=== PATIENT | female | born 1950 | race Caucasian/White ===

== ENCOUNTER 2017-12-27 08:02 | Inpatient (IN) | payer OTHER ==
[2017-12-27 08:07] VITALS: BMI 27.4
--- NOTE | 2017-12-27 08:13 | PDOC ---
History of Present Illness - General Chief Complaint: CVA/TIA Stated Complaint: weakness Time Seen by Provider: 12/27/17 08:03 History Source: Patient, Significant Other Exam Limitations: No Limitations - History of Present Illness Initial Comments: 12/27/17 08:14 This is a 67 YOF with h/o IDDM, HTN, HLD, recurrent UTI. who was BIBEMS after her called because he noticed she had a mild facial droop and leg weakness so bad she was unable to get out of bed this morning. The states that she stayed in bed after awakening and asked him to bring her blankets because she felt very cold. She additionally vomited on herself (the food she ate late last night). Last known well was 2 am today as witnessed by her just before they went to bed. They went to the casino and were drinking last night. The patient did not take any new medications and did not take any meds this morning. She notes that for the past two days she has had vaginal itching and burning on urination. She denies measured fever, n/v/d/c, hematuria, vaginal discharge, n/t, or other symptoms. Past History - Past Medical History Allergies/Adverse Reactions: Allergies Allergy/AdvReac Type Severity Reaction Status Date / Time No Known Drug Allergies Allergy Verified 12/27/17 08:02 Home Medications: Ambulatory Orders Amiloride HCl 10 mg PO ASDIR 12/27/17 Atorvastatin Calcium [Lipitor] 10 mg PO DAILY 12/27/17 Insulin Aspart Prot/Insuln Asp [Novolog Mix 70-30 Flexpen Syrn] 70 unit SQ BID 12/27/17 Insulin Aspart [Novolog] 30 unit SQ BID 12/27/17 Levothyroxine [Synthroid -] 75 mcg PO DAILY 12/27/17 Losartan Potassium 50 mg PO DAILY 12/27/17 Metoprolol Succinate 25 mg PO DAILY 12/27/17 Omeprazole 20 mg PO DAILY 12/27/17 Paroxetine HCl 20 mg PO DAILY 12/27/17 Sitagliptin Phos/Metformin HCl [Janumet 50-1,000 mg Tablet] 1 each PO DAILY Anemia: Yes Asthma: No Cancer: No Cardiac Disorders: No CVA: No COPD: No CHF: No Dementia: No Diabetes: Yes GI Disorders: Yes (GERD, PATIÑO'S ESOPHAGUS) Disorders: No HTN: Yes Hypercholesterolemia: Yes Liver Disease: No Seizures: No Thyroid Disease: Yes (HYPOTHYROIDISM) - Surgical History Abdominal Surgery: No Appendectomy: No Cardiac Surgery: No Cholecystectomy: No Lung Surgery: No Neurologic Surgery: No Orthopedic Surgery: Yes ([facility]) - Suicide/Smoking/Psychosocial Hx Smoking History: Never smoked Have you smoked in the past 12 months: No Hx Alcohol Use: No Drug/Substance Use Hx: No Substance Use Type: None Review of Systems - Review of Systems Able to Perform ROS?: Yes Constitutional: Yes: Chills. No: Unexplained wgt Loss HEENTM: No: Nose Congestion, Throat Pain Respiratory: No: Cough, Shortness of Breath Cardiac (ROS): No: Chest Pain, Palpitations ABD/GI: Yes: Nausea, Vomiting. No: Constipated, Diarrhea : Yes: Burning, Dysuria, Other (vaginal itching) Musculoskeletal: Yes: Neck Pain (right sided last night). No: Back Pain Integumentary: No: Bruising, Rash Neurological: Yes: Weakness (right facial droop, left leg). No: Headache, Numbness, Tingling, Dizziness Endocrine: No: Unexplained Weight Gain, Unexplained Weight Loss *Physical Exam - Vital Signs 12/27/17 08:30 Initial Vital Signs Temp Pulse Resp BP Pulse Ox 99.5 F 109 H 20 146/88 97 12/27/17 08:03 12/27/17 08:03 12/27/17 08:03 12/27/17 08:03 12/27/17 08:03 GENERAL: pleasant older adult female accompanied by , emesis on chest wall and legs, A/Ox4, no acute distress, speaking in full sentences with slightly slurred speech, answers simple questions appropriately but at time does not make sense (e.g. states that the warm fan caused her neck pain) HEENT: PERRLA, cataract replacements noted, EOMI, moist mucous membranes, no posterior pharyngeal erythema, no tonsillar swelling or exudates, no cervical lymphadenopathy NECK: No midline ttp, no lateral ttp, no spinal stepoff or deformity, full ROM, supple CARDIOVASCULAR: Regular rate and rhythm, normal S1S2, MGR, radial and DP pulses 2+ and symmetric, capillary refill <2 seconds, extremities warm and well- perfused Chest wall: Normal appearance, no rash, no bruising, no costal stepoff or deformity, nontender to compression LUNGS/RESPIRATORY: No respiratory distress, normal and symmetric chest movements during respirations, lungs CTA bilaterally, equal breath sounds, no cyanosis, no nail clubbing GI/ABDOMEN: Normal symmetric appearance, normoactive bowel sounds, soft, no tenderness to palpation, no midline pulsatile masses, no palpated organomegaly : No CVA tenderness, normal external appearance, no lesions BACK: No midline ttp or stepoff or deformity of thoracic or lumbar spine EXTREMITIES: distal pulses 2+, warm and well-perfused, no LE edema SKIN: Warm and dry, no pallor, no jaundice, no bruising, no rash, no skin breakdown, no cuts, no lesions NEUROLOGICAL: GCS 15, NIHSS is 3 initially, CN II-XII grossly intact, moving all extremities, 5/5 strength proximally and distally except for LLE which is 4/ 5 proximally and distally, mild right facial droop, no decreased sensation NIH Stroke Scale - Last Known Well Date/Time & Onset Date Last Known Well: 12/27/17 Time Last Known Well: 02:00 - Initial Evaluation Level of consciousness: Alert Ask patient the month and their age: Answers both correctly Ask patient to open & close eyes; make fist and let go: Obeys both correctly Best gaze (horizontal eye movement): Normal Visual field testing: No visual field loss Facial paresis (Show teeth/raise eyebrows/close eyes tight): Minor paralysis ( flattened nasolabial fold, asymmetry on smiling) Motor Function: Left Arm: Normal Motor Function: Right Arm: Normal (extends arm 90 (or 45) degrees for 10 seconds without drift Motor Function: Left Leg: Drift Motor Function: Right Leg: Normal (extends leg 30 degrees for 5 seconds without drift) Limb Ataxia: No ataxia Sensory(Use pinprick test arms,legs,trunk,face/side to side): Normal Best language (Describe picture, name items, read sentences): No Aphasia Dysarthria (read several words): Mild to moderate slurring of words Extinction and Inattention: No abnormality - Total Score NIH Stroke Scale Score: 3 tPA Exclusion checklist 3-4.5h - Time Elapsed Date last known well: 12/27/17 Time last known well: 02:00 Elaspsed time: 1 Day(s) and 11 Hour(s) and 48 Minutes - Thrombolytic Therapy Candidate Is patient eligible for thrombolytic therapy: No - Exclusion Criteria 3-4.5 hr SBP greater than 185 or DBP greater than 110mmHg despite tx: No Recent IC/spinal surgery,head trauma or stroke<3mos.: No Hx IC hemorrhage, IC neoplasm, AV malformation or aneurysm: No Active internal bleeding: No Blding diathesis(low plt ct, inc PTT,INR>1.7 or use of NOAC): No Symptoms suggest subarachnoid hemorrhage: No Arterial puncture at noncompressible site in previous 7 days: No Blood glucose concentration less than 50mg/dL (2.7mmol/L): No - Relative Exclusion Criteria 3-4.5 hr Life expectancy <1 yr or severe co-morbid illness: No : No Patient/family refused: No Rapid improvement: Yes Stroke severity too mild: Yes Recent acute UT (w/in previous 3 months): No Seizure at onset with postictal residual neuro impairments: No Major surgery or serious trauma w/in previous 14 days: No Recent GI or hemorrhage (w/in previous 21 days): No - Add'l Relative Exclusion 3-4.5 hr Age > 80: No Hx of both diabetes AND prior ischemic stroke: No Taking an oral anticoagulant regardless of INR: No NIHSS >25: No - Ineligibility reason(s) Reasons No tPA given: Outside of window - delayed arrival Heart Score/ECG Review #1 Sinus tach, rate 102, leftward axis deviation, normal QTc, LAFB, no ischemic ST- T changes Critical Care Time/MDM Note - Medical Decision Making Note: 12/27/17 08:33 Adult patient p/w acute neurologic deficit (right facial droop, slurred speech, LLE weakness). Last known well time was 2 am at the time she went to bed. The time of onset was sometime between 2am and 7am and they are outside the tPA window. Code Porter is called. Initial Vital Signs Temp Pulse Resp BP Pulse Ox 99.5 F 109 H 20 146/88 97 12/27/17 08:03 12/27/17 08:03 12/27/17 08:03 12/27/17 08:03 12/27/17 08:03 Rectal temp: 102.2 Exam: As noted in Physical Exam section. DDX IBNLT: Sepsis, UTI or other infection, CVA/TIA, cervical dissection, EtOH intoxication, medication effect, Wernicke encephalopathy, hypoglycemia, limb ischemia (e.g. thromboembolism or dissection), subclavian steal, spinal cord compression, cauda equina syndrome W/U ordered: Labs as noted below, Head CT, EKG, CXR TX ordered: IV, O2, Monitor, IVF, Zofran, Tylenol, Head CT: Moderate diffuse atrophy but nothing acute NIH is 3 initially and patient is NOT a tPA candidate. EKG: Reviewed; results as noted in ECG Review section. CXR: Nothing acute Laboratory Tests 12/27/17 12/27/17 12/27/17 08:47 08:47 08:47 WBC 19.3 H RBC 5.05 Hgb 11.4 Hct 36.3 MCV 71.8 L MCH 22.5 L MCHC 31.3 L RDW 16.5 H Plt Count 303 D MPV 7.7 Absolute Neuts (auto) 17.8 H Neutrophils % 92.4 H Lymphocytes % 4.1 L Monocytes % 2.7 L Eosinophils % 0.1 Basophils % 0.7 Nucleated RBC % 0 PT with INR 11.70 INR 1.04 PTT (Actin FS) 22.2 L Sodium 136 Potassium 3.0 L Chloride 97 L Carbon Dioxide 25 Anion Gap 14 BUN 14 Creatinine 0.8 Creat Clearance w eGFR > 60 Random Glucose 204 H Lactic Acid Calcium 9.8 Total Bilirubin 0.7 AST 13 L ALT 21 Alkaline Phosphatase 107 Creatine Kinase 71 Troponin I < 0.02 Total Protein 7.4 Albumin 3.6 Triglycerides 114 Cholesterol 169 Total LDL Cholesterol 92 HDL Cholesterol 60 Urine Color Urine Appearance Urine pH Ur Specific Berne Urine Protein Urine Glucose (UA) Urine Ketones Urine Blood Urine Nitrite Urine Bilirubin Urine Urobilinogen Ur Leukocyte Esterase Urine WBC (Auto) Urine RBC (Auto) Urine Bacteria Urine Mucus Opiates Screen Methadone Screen Barbiturate Screen Phencyclidine Screen Ur Amphetamines Screen MDMA (Ecstasy) Screen Benzodiazepines Screen Cocaine Screen U Marijuana (THC) Screen Alcohol, Quantitative Blood Type Antibody Screen 12/27/17 12/27/17 12/27/17 08:47 08:55 08:56 WBC RBC Hgb Hct MCV MCH MCHC RDW Plt Count MPV Absolute Neuts (auto) Neutrophils % Lymphocytes % Monocytes % Eosinophils % Basophils % Nucleated RBC % PT with INR INR PTT (Actin FS) Sodium Potassium Chloride Carbon Dioxide Anion Gap BUN Creatinine Creat Clearance w eGFR Random Glucose Lactic Acid 3.1 H* Calcium Total Bilirubin AST ALT Alkaline Phosphatase Creatine Kinase Troponin I Total Protein Albumin Triglycerides Cholesterol Total LDL Cholesterol HDL Cholesterol Urine Color Ltyellow Urine Appearance Slcloudy Urine pH 7.0 Ur Specific Berne 1.014 Urine Protein 2+ H Urine Glucose (UA) 2+ H Urine Ketones Negative Urine Blood 2+ H Urine Nitrite Positive Urine Bilirubin Negative Urine Urobilinogen Negative Ur Leukocyte Esterase 2+ H Urine WBC (Auto) 180 Urine RBC (Auto) 34 Urine Bacteria Few Urine Mucus Rare Opiates Screen Methadone Screen Barbiturate Screen Phencyclidine Screen Ur Amphetamines Screen MDMA (Ecstasy) Screen Benzodiazepines Screen Cocaine Screen U Marijuana (THC) Screen Alcohol, Quantitative Blood Type O POSITIVE Antibody Screen Negative 12/27/17 12/27/17 08:56 08:56 WBC RBC Hgb Hct MCV MCH MCHC RDW Plt Count MPV Absolute Neuts (auto) Neutrophils % Lymphocytes % Monocytes % Eosinophils % Basophils % Nucleated RBC % PT with INR INR PTT (Actin FS) Sodium Potassium Chloride Carbon Dioxide Anion Gap BUN Creatinine Creat Clearance w eGFR Random Glucose Lactic Acid Calcium Total Bilirubin AST ALT Alkaline Phosphatase Creatine Kinase Troponin I Total Protein Albumin Triglycerides Cholesterol Total LDL Cholesterol HDL Cholesterol Urine Color Urine Appearance Urine pH Ur Specific Berne Urine Protein Urine Glucose (UA) Urine Ketones Urine Blood Urine Nitrite Urine Bilirubin Urine Urobilinogen Ur Leukocyte Esterase Urine WBC (Auto) Urine RBC (Auto) Urine Bacteria Urine Mucus Opiates Screen Negative Methadone Screen Negative Barbiturate Screen Negative Phencyclidine Screen Negative Ur Amphetamines Screen Negative MDMA (Ecstasy) Screen Negative Benzodiazepines Screen Negative Cocaine Screen Negative U Marijuana (THC) Screen Negative Alcohol, Quantitative < 3.0 Blood Type Antibody Screen Patient has UTI; ordered is Ceftriaxone. Patient has hypokalemia as noted; ordered is PO potassium. 12/27/17 18:30 Reassessment: Much improved, no longer facial asymmetry or slurred speech, 4/5 strength LLE, NIHSS is 1. Vital Signs Temperature 102.2 F H 12/27/17 08:50 Pulse Rate 91 H 12/27/17 11:20 Respiratory Rate 16 12/27/17 11:20 Blood Pressure 112/62 12/27/17 11:20 O2 Sat by Pulse Oximetry (%) 100 12/27/17 11:20 The Pt is unsafe for discharge at this time. They require further hospital observation, workup, and treatment. I spoke with Hiro Fu who is admitting for patient's PCP at this time. Decision to admit order placed for IP Telemetry. 12/27/17 11:53 I spoke with Neurology workers compensation attorney Dr. Rodriguez who is on his way to see the patient in the ED. He recommends 81 mg ASA and order is placed for this. Discharge Disposition - Diagnosis Weakness UTI (urinary tract infection) Qualifiers: Urinary tract infection type: acute cystitis Hematuria presence: without hematuria Qualified Code(s): N30.00 - Acute cystitis without hematuria Sepsis Qualifiers: Sepsis type: sepsis due to unspecified organism Qualified Code(s): A41.9 - Sepsis, unspecified organism - Discharge Dispostion Condition at time of disposition: Guarded Decision to Admit order: Yes - Referrals - Patient Instructions - Post Discharge Activity
[2017-12-27] MEDS ORDERED: ONDANSETRON 4 MG/2 ML VIAL ONE ×3 (08:21→17:55)
[2017-12-27] MEDS ORDERED: ONDANSETRON 4 MG/2 ML VIAL IVPUSH ONE ×2 (08:30→08:32)
--- NOTE | 2017-12-27 08:31 | PDOC ---
Attending Attestation - Resident Resident Name: Leonor Hernandez - ED Attending Attestation I have performed the following: I have examined & evaluated the patient, The case was reviewed & discussed with the resident, I agree w/resident's findings & plan, Exceptions are as noted - HPI HPI: 12/27/17 08:29 67-year-old female history of hypertension hyperlipidemia diabetes and recurring UTIs here today complaining of slurred speech neck pain and weakness. Story is provided by the patient's states they were out last night at dinner and casino he went to bed around 2 AM she went to bed slightly after when they went to bed he noted no deficits however the patient awoke at 4 AM complained of feeling chilled or cold was asking for more blankets and then this a.m. on awakening he describes that she had wasnt answer his questions when he tried to talk to her. EMS noted a right facial droop and had bilateral leg weakness and slurred speech. . No known history of previous strokes no history of CAD no seizure-like activity the called EMS in route to the hospital patient did have 1 episode of emesis. Denies chest pain or shortness of breath no recent fevers or chills no trauma does report he to H on the night prior pt does report recent dysuria, no f/c no cp no sob. 12/27/17 08:38 - Physicial Exam PE: 12/27/17 08:27 18 08:29 12/27/17 08:29 Awake alert no acute distress lung exam is normal with equal breath sounds bilaterally. Heart is regular without any murmurs rubs or gallops abdomen is soft nontender no pulsatile masses extremities are warm and well-perfused 2+ symmetric DP PT pulses neurological exam patient's speech is noted for very mild slurring only noted by family visual sherman are intact cranial nerves appear to be intact she has 5 out of 5 strength in upper bilateral testing. Lower extremities reveals mild left lower extremity weakness which is 4 out of 5 right lower extremity is 5 out of 5 sensation is intact patient is disoriented to the year - Medical Decision Making 12/27/17 08:30 Differential diagnosis includes carotid dissection or vertebral dissection CVA ICH infection exacerbating old CVA symptoms such as UTI or pneumonia hyperglycemia or DKA results of recent EtOH and tox plan CT head CTA of the neck chest x-ray EKG CBC CMP EtOH level troponin and will call code stroke patient was last normal proxy 6 hours prior to arrival Heart Score/ECG Review #1 General ECG Interpretation: Sinus Rhythm, Normal Rate (82), Normal Intervals, No acute ischemic changes
[2017-12-27] MEDS ORDERED: ACETAMINOPHEN 1000 MG/100 ML VIAL (NON FORMULARY) IVPB ONE (08:54)
[2017-12-27] MEDS ORDERED: CEFTRIAXONE 1,000 MG in DEXTROSE 5%-WATER - 50 ML IVPB ONE (08:54)
[2017-12-27] MEDS ORDERED: SODIUM CHLORIDE 0.9% 500 ML INFUS.BAG IV ONE (08:55)
[2017-12-27 08:56] LABS: BASO % 0.7 % (0-2.0); EOS % 0.1 % (0-4.5); HEMATOCRIT 36.3 % (32.4-45.2); HEMOGLOBIN 11.4 GM/dL (10.7-15.3); LYMPH % 4.1 % (8-40); MCH 22.5 pg (25.7-33.7); MCHC 31.3 g/dl (32.0-36.0); MEAN CELL VOLUME 71.8 fl (80-96); MEAN PLT VOLUME 7.7 fl (7.5-11.1); MONO % 2.7 % (3.8-10.2); NEUT % 92.4 % (42.8-82.8); PLATELET COUNT 303 K/MM3 (134-434); RBC 5.05 M/mm3 (3.60-5.2); RDW 16.5 % (11.6-15.6); WHITE BLOOD COUNT 19.3 K/mm3 (4.0-10.0)
[2017-12-27] MEDS ORDERED: CEFTRIAXONE 1 GM/50 ML BAG ONE (09:13)
[2017-12-27] MEDS ORDERED: ACETAMINOPHEN INJECTION 100 ML IVPB ONE (09:13)
[2017-12-27 09:20] LABS: ALBUMIN 3.6 g/dl (3.4-5.0); ALK PHOS 107 U/L (45-117); ANION GAP 14 MMOL/L (8-16); BILIRUBIN,TOTAL 0.7 mg/dL (0.2-1); BLOOD UREA NITROGEN 14 mg/dL (7-18); CALCIUM 9.8 mg/dL (8.5-10.1); CHLORIDE 97 mmol/L (98-107); CHOLESTEROL 169 mg/dL (50-200); CO2 25 mmol/L (21-32); CREATININE 0.8 mg/dL (0.55-1.3); GLUCOSE,RANDOM 204 mg/dL (74-106); HDL CHOLESTEROL 60 mg/dL (40-60); SGOT/AST 13 U/L (15-37); SGPT/ALT 21 U/L (13-61); SODIUM 136 mmol/L (136-145); TOT PROT 7.4 g/dl (6.4-8.2); TRIGLYCERIDES 114 mg/dL (0-150)
[2017-12-27] MEDS ORDERED: POTASSIUM CHLORIDE TABS 20 MEQ TABLET.ER (FP) PO ONE ×2 (09:20→10:15)
[2017-12-27 09:25] LABS: INR 1.04 (0.83-1.09); PROTHROMBIN TIME (PATIENT) 11.7 SEC (9.7-13.0)
[2017-12-27 09:28] LABS: ACTIVATED PTT 22.2 SECONDS (25.2-36.5)
[2017-12-27 09:48] LABS: URINE APPEARANCE SLCLOUDY; URINE BILIRUBIN NEGATIVE (<2.0 mg/dL); URINE COLOR LTYELLOW; URINE GLUCOSE (UA) 2+ (NEGATIVE); URINE KETONE NEGATIVE (NEGATIVE); URINE NITRITE POSITIVE (NEGATIVE); URINE UROBILINOGEN NEGATIVE mg/dL (0.2-1.0)
[2017-12-27 09:51] LABS: URINE LEUK ESTERASE 2+ (NEGATIVE); URINE PROTEIN 2+ (NEGATIVE)
[2017-12-27 09:52] LABS: URINE BACTERIA FEW /hpf (NONE SEEN); URINE MUCUS RARE
[2017-12-27 10:29] LABS: COCAINE, UR NEGATIVE ng/ml (CUTOFF=300); METHADONE, UR NEGATIVE ng/ml (CUTOFF=300); OPIATES, URI NEGATIVE ng/ml (CUTOFF=300); PHENCYCLIDINE,URINE NEGATIVE ng/ml (CUTOFF=25); URINE AMPHETAMINES NEGATIVE ng/ml (CUTOFF=500); URINE BARBITURATES NEGATIVE ng/ml (CUTOFF=200); URINE BENZODIAZEPINES NEGATIVE ng/ml (CUTOFF=200)
[2017-12-27] MEDS ORDERED: ACETAMINOPHEN 325 MG TABLET (FP) NR ONE (10:47)
[2017-12-27] MEDS ORDERED: SODIUM CHLORIDE 1,000 ML IV STA (10:48)
[2017-12-27] MEDS ORDERED: ONDANSETRON 4 MG/2 ML VIAL IVPUSH PRN (10:50)
[2017-12-27] MEDS: SODIUM CHLORIDE 1,000 ML IV SCH (10:52)
[2017-12-27 11:19] LABS: VENOUS PC02 40.7 mmHg (38-52); VENOUS PH 7.42 (7.32-7.42); VENOUS PO2 51.8 mmHg (28-48)
[2017-12-27] MEDS: HYDROCHLOROTHIAZIDE PO SCH ×2 (11:26→22:48)
[2017-12-27] MEDS: AMILORIDE HCL PO SCH ×2 (11:26→22:48)
[2017-12-27] MEDS ORDERED: INSULIN (NOVOLOG) ASPART 100 UNITS/ML 10ML VIAL ONE ×2 (11:45→17:56)
[2017-12-27] MEDS: INSULIN SLIDING SCALE (NOVOLOG) 1 VIAL SQ SCH ×2 (11:48→17:54)
[2017-12-27] MEDS ORDERED: ASPIRIN 81 MG CHEWABLE TABLETS PO ONE (11:52)
[2017-12-27 12:24] LABS: ANISOCYTOSIS 1+; PLATELET ESTIMATE ADEQUATE
[2017-12-27] MEDS ORDERED: ASPIRIN 81 MG CHEWABLE TABLETS ONE (12:55)
--- NOTE | 2017-12-27 13:23 | HP ---
Admitting History and Physical - Primary Care Physician PCP: Denita Granado - Admission Chief Complaint: Weakness with fever and chills History of Present Illness: 67-year-old female history of hypertension hyperlipidemia T2DM and recurring UTIs , present with chills and slurred speech with neck pain and weakness. As per patient and , patient's states they were out last night at dinner and casino he went to bed around 2 AM , patient awoke at 4 AM complained of feeling chilled or cold was asking for more blankets and then this a.m. on awakening he describes that she had wasn't answer his questions when he tried to talk to her. EMS noted a right facial droop and had bilateral leg weakness and slurred speech. . No known history of previous strokes no history of CAD no seizure-like activity the called EMS in route to the hospital patient did have 1 episode of emesis. Denies chest pain or shortness of breath , c/o Rt flank and suprapubic pain, at the time of examination aoX3 non focal. 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 Cardiovascular: Yes: HTN, Hyperlipdemia Psych: No: Addictions, Anxiety, Bipolar Musculoskeletal: Yes: Chronic low back pain Endocrine: Yes: Diabetes Mellitus - Smoking History Smoking history: Never smoked Have you smoked in the past 12 months: No - Alcohol/Substance Use Hx Alcohol Use: No - Social History Usual Living Arrangement: Yes: With Spouse ADL: Independent History of Recent Travel: No Home Medications - Allergies Allergies/Adverse Reactions: Allergies Allergy/AdvReac Type Severity Reaction Status Date / Time No Known Drug Allergies Allergy Verified 12/27/17 08:02 - Home Medications Home Medications: Ambulatory Orders Amiloride HCl 10 mg PO ASDIR 12/27/17 Atorvastatin Calcium [Lipitor] 10 mg PO DAILY 12/27/17 Insulin Aspart Prot/Insuln Asp [Novolog Mix 70-30 Flexpen Syrn] 70 unit SQ BID 12/27/17 Insulin Aspart [Novolog] 30 unit SQ BID 12/27/17 Levothyroxine [Synthroid -] 75 mcg PO DAILY 12/27/17 Losartan Potassium 50 mg PO DAILY 12/27/17 Metoprolol Succinate 25 mg PO DAILY 12/27/17 Omeprazole 20 mg PO DAILY 12/27/17 Paroxetine HCl 20 mg PO DAILY 12/27/17 Sitagliptin Phos/Metformin HCl [Janumet 50-1,000 mg Tablet] 1 each PO DAILY Family Disease History - Family Disease History Family History: Unremarkable Review of Systems - Review of Systems Constitutional: reports: Chills, Fever, Lethargy. denies: Diaphoresis Eyes: denies: Blind Spots, Blurred Vision HENT: denies: Ear Discharge, Ear Pain, Epistaxis Neck: denies: Decreased ROM, Lumps, Pain on Movement, Stiffness Cardiovascular: denies: Chest Pain, Edema, Palpitations, Shortness of Breath Respiratory: denies: Cough, Exercise Intolerance, Hemoptysis, Orthopnea Gastrointestinal: reports: Nausea, Vomiting. denies: Abdominal Pain, Bloating, Constipation, Diarrhea Genitourinary: reports: Dysuria, Flank Pain (Left) Musculoskeletal: reports: Back Pain Endocrine: denies: Excessive Sweating, Flushing Psychiatric: denies: Altered Sleep Pattern Physical Examination Vital Signs: Vital Signs Temperature 102.2 F H 12/27/17 08:50 Pulse Rate 91 H 12/27/17 11:20 Respiratory Rate 16 12/27/17 11:20 Blood Pressure 112/62 12/27/17 11:20 O2 Sat by Pulse Oximetry (%) 100 12/27/17 11:20 Constitutional: Elderly Well Nourished, No Distress HEENT: Mm dry, no anemia, PERRLA EOMI NECK: No JVd No bruit, no thyromegally , supple. Respiratory: Regular, CTA Bilaterally. No: Stridor, Tachypnea Cardiovascular: Regular Rate and Rhythm, SM in AA Gastrointestinal: Normal Bowel Sounds, Soft. No: Distention, Suprapubic, Tenderness EXTERMITIES: No edema feet, Pulses +, No Claf tenderness, CVA Tenderness + Neurological: Alert, non focal neuro exam Labs: CBC, BMP 12/27/17 08:47 12/27/17 08:47 CBC,CMP WBC 19.3 K/mm3 (4.0-10.0) H 12/27/17 08:47 RBC 5.05 M/mm3 (3.60-5.2) 12/27/17 08:47 Hgb 11.4 GM/dL (10.7-15.3) 12/27/17 08:47 Hct 36.3 % (32.4-45.2) 12/27/17 08:47 MCV 71.8 fl (80-96) L 12/27/17 08:47 MCH 22.5 pg (25.7-33.7) L 12/27/17 08:47 MCHC 31.3 g/dl (32.0-36.0) L 12/27/17 08:47 RDW 16.5 % (11.6-15.6) H 12/27/17 08:47 Plt Count 303 K/MM3 (134-434) D 12/27/17 08:47 MPV 7.7 fl (7.5-11.1) 12/27/17 08:47 Absolute Neuts (auto) 17.8 K/mm3 (1.5-8.0) H 12/27/17 08:47 Total Counted 100 12/27/17 08:47 Neutrophils % 92.4 % (42.8-82.8) H 12/27/17 08:47 Neutrophils % (Manual) 86.0 % (42.8-82.8) H 12/27/17 08:47 Band Neutrophils % 5.0 % 12/27/17 08:47 Lymphocytes % 4.1 % (8-40) L 12/27/17 08:47 Lymphocytes % (Manual) 6.0 % (8-40) L 12/27/17 08:47 Monocytes % 2.7 % (3.8-10.2) L 12/27/17 08:47 Monocytes % (Manual) 3 % (3.8-10.2) L 12/27/17 08:47 Eosinophils % 0.1 % (0-4.5) 12/27/17 08:47 Basophils % 0.7 % (0-2.0) 12/27/17 08:47 Nucleated RBC % 0 % (0-0) 12/27/17 08:47 Hypochromia 1+ 12/27/17 08:47 Platelet Estimate Adequate 12/27/17 08:47 Platelet Comment No clumping noted 12/27/17 08:47 Polychromasia 1+ 12/27/17 08:47 Anisocytosis 1+ 12/27/17 08:47 Microcytosis 1+ 12/27/17 08:47 Sodium 136 mmol/L (136-145) 12/27/17 08:47 Potassium 3.0 mmol/L (3.5-5.1) L 12/27/17 08:47 Chloride 97 mmol/L (98-107) L 12/27/17 08:47 Carbon Dioxide 25 mmol/L (21-32) 12/27/17 08:47 Anion Gap 14 MMOL/L (8-16) 12/27/17 08:47 BUN 14 mg/dL (7-18) 12/27/17 08:47 Creatinine 0.8 mg/dL (0.55-1.3) 12/27/17 08:47 Creat Clearance w eGFR > 60 (>60) 12/27/17 08:47 Random Glucose 204 mg/dL (74-106) H 12/27/17 08:47 Lactic Acid 2.2 mmol/L (0.4-2.0) H* 12/27/17 11:05 Calcium 9.8 mg/dL (8.5-10.1) 12/27/17 08:47 Total Bilirubin 0.7 mg/dL (0.2-1) 12/27/17 08:47 AST 13 U/L (15-37) L 12/27/17 08:47 ALT 21 U/L (13-61) 12/27/17 08:47 Alkaline Phosphatase 107 U/L (45-117) 12/27/17 08:47 Creatine Kinase 71 IU/L (26-192) 12/27/17 08:47 Troponin I < 0.02 ng/ml (0.00-0.05) 12/27/17 08:47 Total Protein 7.4 g/dl (6.4-8.2) 12/27/17 08:47 Albumin 3.6 g/dl (3.4-5.0) 12/27/17 08:47 Triglycerides 114 mg/dL (0-150) 12/27/17 08:47 Cholesterol 169 mg/dL (50-200) 12/27/17 08:47 Total LDL Cholesterol 92 mg/dL (5-100) 12/27/17 08:47 HDL Cholesterol 60 mg/dL (40-60) 12/27/17 08:47 Imaging - Results Chest X-ray: Pending (Normal) EKG: Report Reviewed (Sinus Rhythm, Normal Rate (82), Normal Intervals, No acute ischemic changes) Problem List - Problems (1) Sepsis Assessment/Plan: Due to UTI, fever, Chills, + UA, elevated TWBC and Lactic acid IV Hydration F/u Lactic acid , UA and blood culture will start IV Ceftriaxone. Code(s): A41.9 - SEPSIS, UNSPECIFIED ORGANISM Qualifiers: Sepsis type: sepsis due to unspecified organism Qualified Code(s): A41.9 - Sepsis, unspecified organism (2) UTI (urinary tract infection) Assessment/Plan: fever, Chills, + UA, elevated TWBC and Lactic acid IV Hydration F/u Lactic acid , UA and blood culture will start IV Ceftriaxone.F/U Ultrasound abd Code(s): N39.0 - URINARY TRACT INFECTION, SITE NOT SPECIFIED Qualifiers: Urinary tract infection type: acute cystitis Hematuria presence: without hematuria Qualified Code(s): N30.00 - Acute cystitis without hematuria (3) Altered mental state Assessment/Plan: toxic metabolic encephalopthy, Ct haed -ve now AOX3 most likely toxic metabolic encephalopathy due to UTI Code(s): R41.82 - ALTERED MENTAL STATUS, UNSPECIFIED (4) HTN (hypertension) Assessment/Plan: Resume all home meds Code(s): I10 - ESSENTIAL (PRIMARY) HYPERTENSION (5) T2DM (type 2 diabetes mellitus) Assessment/Plan: uncontrolled will satrt Levimir 24 with correction dose insulin Code(s): E11.9 - TYPE 2 DIABETES MELLITUS WITHOUT COMPLICATIONS (6) Dyslipidemia Assessment/Plan: on statin Code(s): E78.5 - HYPERLIPIDEMIA, UNSPECIFIED
--- NOTE | 2017-12-27 17:00 | EKG ---
Test Reason : Blood Pressure : / mmHG Vent. Rate : 102 BPM Atrial Rate : 102 BPM P-R Int : 184 ms QRS Dur : 102 ms QT Int : 348 ms P-R-T Axes : 053 -52 046 degrees QTc Int : 453 ms SINUS TACHYCARDIA LEFT ANTERIOR FASCICULAR BLOCK CANNOT RULE OUT ANTERIOR INFARCT , AGE UNDETERMINED ABNORMAL ECG WHEN COMPARED WITH ECG OF 11-MAY-2003 14:29, LEFT ANTERIOR FASCICULAR BLOCK IS NOW PRESENT MINIMAL CRITERIA FOR ANTERIOR INFARCT ARE NOW PRESENT Confirmed by MD Jefferson, Colby ([id number]) on 12/27/2017 4:59:47 PM Referred By: Confirmed By:Colby Paulino MD
--- NOTE | 2017-12-27 20:18 | CON.NEURO ---
Consult Consult Specialty:: Jennifer neurology Reason for Consultation:: slurred speech - History of Present Illness History of Present Illness: 67-year-old right-handed female patient with present medical history significant for: coronary artery disease, hypertension, hyperlipidemia, insulin dependent diabetes presented to the hospital with weakness and slurred speech. Patient went presented to the hospital she was outside the window for any anticoagulation or thrombo-lysis. Patient was seen in the emergency room by neurology at the request of the emergency room physician as part of the stroke protocol. in the emergency room patient was in the holding area complains of no headache or blurry vision or double vision patient was a poor historian most of the history was taken from the and the admission notes I reviewed the patient's CAT scan of the head which revealed no evidence of acute pathology patient was given aspirin. - History Source History Provided By: Patient, Medical Record Limitations to Obtaining History: Clinical Condition - Alcohol/Substance Use Hx Alcohol Use: No - Smoking History Smoking history: Never smoked Have you smoked in the past 12 months: No Home Medications - Allergies Allergies/Adverse Reactions: Allergies Allergy/AdvReac Type Severity Reaction Status Date / Time No Known Drug Allergies Allergy Verified 12/27/17 08:02 - Home Medications Home Medications: Ambulatory Orders Amiloride HCl 10 mg PO ASDIR 12/27/17 Atorvastatin Calcium [Lipitor] 10 mg PO DAILY 12/27/17 Insulin Aspart Prot/Insuln Asp [Novolog Mix 70-30 Flexpen Syrn] 70 unit SQ BID 12/27/17 Insulin Aspart [Novolog] 30 unit SQ BID 12/27/17 Levothyroxine [Synthroid -] 75 mcg PO DAILY 12/27/17 Losartan Potassium 50 mg PO DAILY 12/27/17 Metoprolol Succinate 25 mg PO DAILY 12/27/17 Omeprazole 20 mg PO DAILY 12/27/17 Paroxetine HCl 20 mg PO DAILY 12/27/17 Sitagliptin Phos/Metformin HCl [Janumet 50-1,000 mg Tablet] 1 each PO DAILY Family Disease History - Family Disease History Family History: Unable to Obtain Review of Systems - Review of Systems Constitutional: reports: No Symptoms Eyes: reports: No Symptoms HENT: reports: No Symptoms Neurological: reports: Headache, Numbness Physical Exam-Neuro Vital Signs: Vital Signs Temperature 98.1 F 12/27/17 18:30 Pulse Rate 67 12/27/17 18:30 Respiratory Rate 16 12/27/17 18:30 Blood Pressure 102/60 12/27/17 18:30 O2 Sat by Pulse Oximetry (%) 100 12/27/17 18:30 Constitutional: Yes: Well Nourished Neck: Yes: WNL Labs: CBC, BMP 12/27/17 08:47 12/27/17 08:47 INR, PTT INR 1.04 (0.83-1.09) 12/27/17 08:47 - Neuro Exam Level Of Consciousness: Yes: Oriented to Person, Oriented to Place, Oriented to Time Eyes: Yes: PERRLA Speech: WNL Dominant Hand: Right Cranial Nerves II-XII Intact: Yes Gag: Present DTR's: 1+ Left Bicep, 1+ Right Bicep, 1+ Left Tricep, 1+ Right Tricep, 1+ Left Brachioradialis, 1+ Right Brachioradialis, 1+ Left Achilles Response to light touch: Normal Response to pain prick: Normal Response to temperature: Normal Response to vibration: Normal Motor Strength: 4/5: Left Arm, Right Arm, Left Leg, Right Leg Imaging - Results Cat Scan: Image Reviewed Problem List - Problems (1) Weakness Assessment/Plan: resolved slurred speech questionable TIA Risk of ischemic events includes age, hypertension, diabetes. 1. 1. Neuro check 2. ASA Antiplatelet 3. Fall precautions 4, Am lipid 5. PT 5. Dysphagia protocol 6. Statin 7. Echo 8. Stroke education: weight loss and smoking cessation 9. SCDs units 10. repeat CAT scan of the head tomorrow I thank you for getting me involved in this patient's neurological care Code(s): R53.1 - WEAKNESS
[2017-12-27] MEDS ORDERED: SODIUM CHLORIDE 1,000 ML IV SCH (21:45)
[2017-12-27] MEDS: INSULIN (LEVEMIR) 100 UNITS/ML UNITS SQ SCH (22:48)
[2017-12-27] MEDS: ATORVASTATIN CA 10 MG TABLET (FP) PO SCH (22:49)
[2017-12-28] MEDS ORDERED: INSULIN (NOVOLOG) ASPART 100 UNITS/ML 10ML VIAL ONE (06:03)
[2017-12-28] MEDS: INSULIN SLIDING SCALE (NOVOLOG) 1 VIAL SQ SCH ×3 (06:05→17:09)
[2017-12-28] MEDS: LEVOTHYROXINE NA 75 MCG TABLET (FP) PO SCH (06:06)
[2017-12-28 06:48] LABS: BASO % 0.3 % (0-2.0); EOS % 1.2 % (0-4.5); HEMATOCRIT 31.1 % (32.4-45.2); HEMOGLOBIN 9.7 GM/dL (10.7-15.3); LYMPH % 18.9 % (8-40); MCH 22.9 pg (25.7-33.7); MCHC 31.4 g/dl (32.0-36.0); MEAN CELL VOLUME 72.9 fl (80-96); MEAN PLT VOLUME 7.9 fl (7.5-11.1); MONO % 4.4 % (3.8-10.2); NEUT % 75.2 % (42.8-82.8); PLATELET COUNT 271 K/MM3 (134-434); RBC 4.26 M/mm3 (3.60-5.2); RDW 16.4 % (11.6-15.6); WHITE BLOOD COUNT 12.9 K/mm3 (4.0-10.0)
[2017-12-28 07:33] LABS: ALBUMIN 2.9 g/dl (3.4-5.0); ALK PHOS 78 U/L (45-117); ANION GAP 7 MMOL/L (8-16); BILIRUBIN,TOTAL 0.4 mg/dL (0.2-1); BLOOD UREA NITROGEN 13 mg/dL (7-18); CALCIUM 8.4 mg/dL (8.5-10.1); CHLORIDE 100 mmol/L (98-107); CO2 29 mmol/L (21-32); CREATININE 0.8 mg/dL (0.55-1.3); GLUCOSE,RANDOM 216 mg/dL (74-106); POTASSIUM 3.9 mmol/L (3.5-5.1); SGOT/AST 50 U/L (15-37); SGPT/ALT 22 U/L (13-61); SODIUM 136 mmol/L (136-145); TOT PROT 6.3 g/dl (6.4-8.2)
--- NOTE | 2017-12-28 08:35 | PN ---
Progress Note, Physician Chief Complaint: Remained afebrile, feels improved - Current Medication List Current Medications: Active Medications Acetaminophen (Tylenol -) 650 mg PO Q6H PRN PRN Reason: FEVER Atorvastatin Calcium (Lipitor -) 10 mg PO HS [facility] Last Admin: 12/27/17 22:49 Dose: 10 mg Sodium Chloride (Normal Saline -) 1,000 mls @ 42 mls/hr IV ASDIR [facility] Last Admin: 12/27/17 10:52 Dose: 42 mls/hr Ceftriaxone Sodium 1 gm/ (Dextrose) 50 mls @ 100 mls/hr IVPB DAILY [facility] Influenza Virus Vaccine Quadrival (Flulaval Quad [id number]) 60 mcg IM .ONCE ONE Stop: 12/28/17 10:01 Insulin Aspart (Novolog Vial Sliding Scale -) 1 vial SQ TIDAC [facility]; Protocol Last Admin: 12/28/17 06:05 Dose: 4 unit Insulin Detemir (Levemir Vial) 25 units SQ [facility] Last Admin: 12/27/17 22:48 Dose: 25 units Levothyroxine Sodium (Synthroid -) 75 mcg PO 0700 [facility] Last Admin: 12/28/17 06:06 Dose: 75 mcg Losartan Potassium (Cozaar -) 50 mg PO DAILY [facility] Metoprolol Succinate (Toprol Xl -) 25 mg PO DAILY [facility] (Amiloride Hcl/Hctz 5 Mg/50mg) Patient' s Own Medication ( Non-Formulary) 1 each PO BID [facility] Last Admin: 12/27/17 22:48 Dose: 1 each Ondansetron HCl (Zofran Injection) 4 mg IVPUSH Q6H PRN PRN Reason: NAUSEA - Objective Vital Signs: Vital Signs Temperature 97.9 F 12/28/17 05:40 Pulse Rate 75 12/28/17 05:40 Respiratory Rate 20 12/28/17 05:40 Blood Pressure 118/62 12/28/17 05:40 O2 Sat by Pulse Oximetry (%) 100 12/27/17 21:00 Constitutional: Elderly Well Nourished, No Distress HEENT: Mm dry, no anemia, PERRLA EOMI NECK: No JVd No bruit, no thyromegally , supple. Respiratory: Regular, CTA Bilaterally. No: Stridor, Tachypnea Cardiovascular: Regular Rate and Rhythm, SM in AA Gastrointestinal: Normal Bowel Sounds, Soft. No: Distention, Suprapubic, Tenderness EXTERMITIES: No edema feet, Pulses +, No Claf tenderness, CVA Tenderness + Neurological: Alert, non focal neuro exam Labs: CBC, BMP 12/28/17 05:30 12/28/17 05:30 INR, PTT INR 1.04 (0.83-1.09) 12/27/17 08:47 - ....Imaging X-ray: Report Reviewed (No acute changes) Cat Scan: Report Reviewed (No acute changes) Problem List - Problems (1) Sepsis Assessment/Plan: TWBC trending normal, remained afebrile, feels improved , UA and blood culture will start IV Ceftriaxone. Code(s): A41.9 - SEPSIS, UNSPECIFIED ORGANISM Qualifiers: Sepsis type: sepsis due to unspecified organism Qualified Code(s): A41.9 - Sepsis, unspecified organism (2) UTI (urinary tract infection) Assessment/Plan: fever, Chills, + UA, elevated TWBC and Lactic acid IV Hydration F/u Lactic acid , UA and blood culture will start IV Ceftriaxone.F/U Ultrasound abd Code(s): N39.0 - URINARY TRACT INFECTION, SITE NOT SPECIFIED Qualifiers: Urinary tract infection type: acute cystitis Hematuria presence: without hematuria Qualified Code(s): N30.00 - Acute cystitis without hematuria (3) Altered mental state Assessment/Plan: Improved after Hydration , due to toxic metabolic encephalopathy F/U clinically Code(s): R41.82 - ALTERED MENTAL STATUS, UNSPECIFIED (4) HTN (hypertension) Assessment/Plan: Stable on home meds Code(s): I10 - ESSENTIAL (PRIMARY) HYPERTENSION (5) T2DM (type 2 diabetes mellitus) Assessment/Plan: uncontrolled will start Levimir 24 with correction dose insulin F/U HBa!C Code(s): E11.9 - TYPE 2 DIABETES MELLITUS WITHOUT COMPLICATIONS (6) Dyslipidemia Assessment/Plan: on statin Code(s): E78.5 - HYPERLIPIDEMIA, UNSPECIFIED
[2017-12-28] MEDS ORDERED: DEXTROSE 5%-WATER - 50 ML IVPB ONE (09:47)
[2017-12-28] MEDS ORDERED: cefTRIAXone SODIUM 1 GM VIAL ONE (09:47)
[2017-12-28] MEDS ORDERED: FLU VACCINE QUAD 60 MCG/0.5 ML (MDV 18-19) IM ONE (10:00)
[2017-12-28] MEDS: SODIUM CHLORIDE 1,000 ML IV SCH (10:55)
[2017-12-28] MEDS: LOSARTAN POTASSIUM 50 MG TABLET (FP) PO SCH (10:55)
[2017-12-28] MEDS: metoPROLOL SUCCINATE 25 MG TAB.SR.24H (FP) PO SCH (10:55)
[2017-12-28] MEDS: HYDROCHLOROTHIAZIDE PO SCH ×2 (10:56→22:58)
[2017-12-28] MEDS: CEFTRIAXONE 1 GM in DEXTROSE 5%-WATER - 50 ML IVPB SCH (10:56)
[2017-12-28] MEDS: AMILORIDE HCL PO SCH ×2 (10:56→22:58)
[2017-12-28] MEDS: ACETAMINOPHEN 325 MG TABLET (FP) PO PRN (20:12)
[2017-12-28] MEDS: INSULIN (LEVEMIR) 100 UNITS/ML UNITS SQ SCH (22:58)
[2017-12-28] MEDS: ATORVASTATIN CA 10 MG TABLET (FP) PO SCH (22:58)
[2017-12-28] MEDS ORDERED: PT OWN MED DRAWER 7, Y5N ONE (22:58)
[2017-12-29] MEDS: LEVOTHYROXINE NA 75 MCG TABLET (FP) PO SCH (06:44)
[2017-12-29] MEDS: INSULIN SLIDING SCALE (NOVOLOG) 1 VIAL SQ SCH ×3 (06:45→16:55)
[2017-12-29 06:53] LABS: BASO % 0.5 % (0-2.0); EOS % 1.1 % (0-4.5); HEMATOCRIT 29.5 % (32.4-45.2); HEMOGLOBIN 9.4 GM/dL (10.7-15.3); LYMPH % 13.5 % (8-40); MCHC 31.9 g/dl (32.0-36.0); MEAN PLT VOLUME 7.8 fl (7.5-11.1); MONO % 6.5 % (3.8-10.2); NEUT % 78.4 % (42.8-82.8); PLATELET COUNT 250 K/MM3 (134-434); RBC 4.09 M/mm3 (3.60-5.2); RDW 16.3 % (11.6-15.6); WHITE BLOOD COUNT 9.3 K/mm3 (4.0-10.0)
[2017-12-29 07:17] LABS: ANION GAP 6 MMOL/L (8-16); BLOOD UREA NITROGEN 11 mg/dL (7-18); CALCIUM 8.5 mg/dL (8.5-10.1); CHLORIDE 100 mmol/L (98-107); CO2 29 mmol/L (21-32); CREATININE 0.7 mg/dL (0.55-1.3); GLUCOSE,RANDOM 211 mg/dL (74-106); POTASSIUM 4.7 mmol/L (3.5-5.1); SODIUM 135 mmol/L (136-145)
--- NOTE | 2017-12-29 07:47 | PN ---
Progress Note, Physician Chief Complaint: Remained afebrile, feels improved, c/o head ache - Current Medication List Current Medications: Active Medications Acetaminophen (Tylenol -) 650 mg PO Q6H PRN PRN Reason: FEVER Last Admin: 12/28/17 20:12 Dose: 650 mg Atorvastatin Calcium (Lipitor -) 10 mg PO HS [facility] Last Admin: 12/28/17 22:58 Dose: 10 mg Sodium Chloride (Normal Saline -) 1,000 mls @ 42 mls/hr IV ASDIR [facility] Last Admin: 12/28/17 10:55 Dose: 42 mls/hr Ceftriaxone Sodium 1 gm/ (Dextrose) 50 mls @ 100 mls/hr IVPB DAILY [facility] Last Admin: 12/28/17 10:56 Dose: 100 mls/hr Insulin Aspart (Novolog Vial Sliding Scale -) 1 vial SQ TIDAC [facility]; Protocol Last Admin: 12/29/17 06:45 Dose: 4 unit Insulin Detemir (Levemir Vial) 25 units SQ [facility] Last Admin: 12/28/17 22:58 Dose: 25 units Levothyroxine Sodium (Synthroid -) 75 mcg PO 0700 [facility] Last Admin: 12/29/17 06:44 Dose: 75 mcg Losartan Potassium (Cozaar -) 50 mg PO DAILY [facility] Last Admin: 12/28/17 10:55 Dose: 50 mg Metoprolol Succinate (Toprol Xl -) 25 mg PO DAILY [facility] Last Admin: 12/28/17 10:55 Dose: 25 mg (Amiloride Hcl/Hctz 5 Mg/50mg) Patient' s Own Medication ( Non-Formulary) 1 each PO BID [facility] Last Admin: 12/28/17 22:58 Dose: 1 each Ondansetron HCl (Zofran Injection) 4 mg IVPUSH Q6H PRN PRN Reason: NAUSEA - Objective Vital Signs: Vital Signs Temperature 98.8 F 12/29/17 05:52 Pulse Rate 74 12/29/17 05:52 Respiratory Rate 20 12/29/17 05:52 Blood Pressure 127/64 12/29/17 05:52 O2 Sat by Pulse Oximetry (%) 100 12/28/17 08:56 Constitutional: Elderly Well Nourished, No Distress HEENT: Mm dry, no anemia, PERRLA EOMI NECK: No JVd No bruit, no thyromegally , lower cervicle tensderness. Respiratory: Regular, CTA Bilaterally. No: Stridor, Tachypnea Cardiovascular: Regular Rate and Rhythm, SM in AA Gastrointestinal: Normal Bowel Sounds, Soft. No: Distention, no Suprapubic, Tenderness EXTERMITIES: No edema feet, Pulses +, No Claf tenderness, CVA Tenderness + Neurological: Alert, non focal neuro exam Labs: CBC, BMP 12/29/17 05:30 12/29/17 05:30 INR, PTT INR 1.04 (0.83-1.09) 12/27/17 08:47 Microbiology 12/27/17 08:55 Blood Culture - Preliminary Blood - Peripheral Venous NO GROWTH OBTAINED AFTER 48 HOURS, INCUBATION TO CONTINUE FOR 3 DAYS. 12/27/17 08:55 Blood Culture - Preliminary Blood - Peripheral Venous NO GROWTH OBTAINED AFTER 48 HOURS, INCUBATION TO CONTINUE FOR 3 DAYS. 12/27/17 08:56 Urine Culture - Final Urine - Urine - Catheterized Escherichia Coli Problem List - Problems (1) Sepsis Assessment/Plan: TWBC trending normal, remained afebrile, feels improved urine culture Grew E Colli sensitive to Ceftriaxone will switch to PO abx in am. Code(s): A41.9 - SEPSIS, UNSPECIFIED ORGANISM Qualifiers: Sepsis type: sepsis due to unspecified organism Qualified Code(s): A41.9 - Sepsis, unspecified organism (2) UTI (urinary tract infection) Assessment/Plan: Grew E Colli sensitive to Ceftriaxone will cont switch to PO abx in am. Code(s): N39.0 - URINARY TRACT INFECTION, SITE NOT SPECIFIED Qualifiers: Urinary tract infection type: acute cystitis Hematuria presence: without hematuria Qualified Code(s): N30.00 - Acute cystitis without hematuria (3) Altered mental state Assessment/Plan: Improved after Hydration and abx , due to toxic metabolic encephalopathy due to UTI F/U clinically Code(s): R41.82 - ALTERED MENTAL STATUS, UNSPECIFIED Qualifiers: Altered mental status type: disorientation Qualified Code(s): R41.0 - Disorientation, unspecified (4) HTN (hypertension) Assessment/Plan: Stable on home meds Code(s): I10 - ESSENTIAL (PRIMARY) HYPERTENSION (5) T2DM (type 2 diabetes mellitus) Assessment/Plan: uncontrolled will start Levimir 24 with correction dose insulin F/U HBa!C Code(s): E11.9 - TYPE 2 DIABETES MELLITUS WITHOUT COMPLICATIONS (6) Dyslipidemia Assessment/Plan: on statin Code(s): E78.5 - HYPERLIPIDEMIA, UNSPECIFIED
[2017-12-29] MEDS: ACETAMINOPHEN 325 MG TABLET (FP) PO PRN ×2 (08:16→16:47)
[2017-12-29] MEDS ORDERED: DEXTROSE 5%-WATER - 50 ML IVPB ONE (10:38)
[2017-12-29] MEDS ORDERED: cefTRIAXone SODIUM 1 GM VIAL ONE (10:38)
[2017-12-29] MEDS: CEFTRIAXONE 1 GM in DEXTROSE 5%-WATER - 50 ML IVPB SCH (11:08)
[2017-12-29] MEDS: metoPROLOL SUCCINATE 25 MG TAB.SR.24H (FP) PO SCH (11:08)
[2017-12-29] MEDS: LOSARTAN POTASSIUM 50 MG TABLET (FP) PO SCH (11:08)
[2017-12-29] MEDS: AMILORIDE HCL PO SCH ×2 (11:09→21:18)
[2017-12-29] MEDS: HYDROCHLOROTHIAZIDE PO SCH ×2 (11:09→21:18)
[2017-12-29] MEDS: SODIUM CHLORIDE 1,000 ML IV SCH (11:09)
[2017-12-29] MEDS ORDERED: PT OWN MED DRAWER 7, Y5N ONE ×2 (12:37→20:28)
[2017-12-29] MEDS: ATORVASTATIN CA 10 MG TABLET (FP) PO SCH (21:18)
[2017-12-29] MEDS: INSULIN (LEVEMIR) 100 UNITS/ML UNITS SQ SCH (21:18)
[2017-12-30 06:18] LABS: BASO % 0.8 % (0-2.0); EOS % 1.1 % (0-4.5); HEMATOCRIT 30.2 % (32.4-45.2); HEMOGLOBIN 9.7 GM/dL (10.7-15.3); LYMPH % 22.3 % (8-40); MCH 22.9 pg (25.7-33.7); MCHC 32.3 g/dl (32.0-36.0); MEAN CELL VOLUME 70.9 fl (80-96); MEAN PLT VOLUME 7.9 fl (7.5-11.1); MONO % 8.2 % (3.8-10.2); NEUT % 67.6 % (42.8-82.8); PLATELET COUNT 255 K/MM3 (134-434); RBC 4.26 M/mm3 (3.60-5.2); RDW 16.5 % (11.6-15.6); WHITE BLOOD COUNT 6.6 K/mm3 (4.0-10.0)
[2017-12-30] MEDS: LEVOTHYROXINE NA 75 MCG TABLET (FP) PO SCH (06:21)
[2017-12-30] MEDS: INSULIN SLIDING SCALE (NOVOLOG) 1 VIAL SQ SCH ×2 (06:21→11:23)
[2017-12-30 06:54] LABS: ALBUMIN 2.8 g/dl (3.4-5.0); ALK PHOS 89 U/L (45-117); ANION GAP 8 MMOL/L (8-16); BILIRUBIN,TOTAL 0.3 mg/dL (0.2-1); BLOOD UREA NITROGEN 11 mg/dL (7-18); CALCIUM 8.6 mg/dL (8.5-10.1); CHLORIDE 97 mmol/L (98-107); CO2 26 mmol/L (21-32); CREATININE 0.8 mg/dL (0.55-1.3); GLUCOSE,RANDOM 282 mg/dL (74-106); POTASSIUM 4.1 mmol/L (3.5-5.1); SGOT/AST 22 U/L (15-37); SGPT/ALT 23 U/L (13-61); SODIUM 131 mmol/L (136-145); TOT PROT 6.4 g/dl (6.4-8.2)
--- NOTE | 2017-12-30 07:15 | DS ---
Physical Examination Vital Signs: Vital Signs Temperature 99.1 F 12/30/17 06:03 Pulse Rate 71 12/30/17 06:03 Respiratory Rate 18 12/30/17 06:03 Blood Pressure 119/54 L 12/30/17 06:03 O2 Sat by Pulse Oximetry (%) 97 12/29/17 20:43 Constitutional: Elderly Well Nourished, No Distress HEENT: Mm dry, no anemia, PERRLA EOMI NECK: No JVd No bruit, no thyromegally , supple. Respiratory: Regular, CTA Bilaterally. No: Stridor, Tachypnea Cardiovascular: Regular Rate and Rhythm, SM in AA Gastrointestinal: Normal Bowel Sounds, Soft. No: Distention, no Suprapubic, Tenderness EXTERMITIES: No edema feet, Pulses +, No Calf tenderness, CVA Tenderness + Neurological: Alert, non focal neuro exam Labs: CBC, BMP 12/30/17 05:30 12/30/17 05:30 Microbiology 12/27/17 08:55 Blood Culture - Preliminary Blood - Peripheral Venous NO GROWTH OBTAINED AFTER 48 HOURS, INCUBATION TO CONTINUE FOR 3 DAYS. 12/27/17 08:55 Blood Culture - Preliminary Blood - Peripheral Venous NO GROWTH OBTAINED AFTER 48 HOURS, INCUBATION TO CONTINUE FOR 3 DAYS. 12/27/17 08:56 Urine Culture - Final Urine - Urine - Catheterized Escherichia Coli Renal Ultrasound; No stone or Structural abnormality Discharge Summary Reason For Visit: UTI,SEPSIS,WEAKNESS Current Active Problems Altered mental state (Acute) Dyslipidemia (Acute) HTN (hypertension) (Acute) Sepsis (Acute) T2DM (type 2 diabetes mellitus) (Acute) UTI (urinary tract infection) (Acute) Weakness (Acute) Hospital Course: 67-year-old female history of hypertension hyperlipidemia T2DM and recurring UTIs , present with chills and slurred speech with neck pain and weakness. w/u shows UTI with Sepsis that gradually improved with IV Ceftriaxone U Culture Grew E Colli sensitive to Levofloxacin. Condition: Improved - Instructions Diet, Activity, Other Instructions: Diabetic Low Na and Cholestril. Referrals: Denita Granado MD [Primary Care Provider] - 1 Week Disposition: HOME - Home Medications Comprehensive Discharge Medication List: Ambulatory Orders Amiloride HCl 10 mg PO ASDIR 12/27/17 Atorvastatin Calcium [Lipitor] 10 mg PO DAILY 12/27/17 Insulin Aspart Prot/Insuln Asp [Novolog Mix 70-30 Flexpen Syrn] 70 unit SQ BID 12/27/17 Insulin Aspart [Novolog] 30 unit SQ BID 12/27/17 Levothyroxine [Synthroid -] 75 mcg PO DAILY 12/27/17 Losartan Potassium 50 mg PO DAILY 12/27/17 Metoprolol Succinate 25 mg PO DAILY 12/27/17 Omeprazole 20 mg PO DAILY 12/27/17 Paroxetine HCl 20 mg PO DAILY 12/27/17 Sitagliptin Phos/Metformin HCl [Janumet 50-1,000 mg Tablet] 1 each PO DAILY Acetaminophen [Tylenol .Regular Strength -] 650 mg PO Q6H PRN tablet 12/30/17 Levothyroxine [Synthroid -] 75 mcg PO 0700 #10 tablet 12/30/17
[2017-12-30] MEDS ORDERED: cefTRIAXone SODIUM 1 GM VIAL ONE (09:24)
[2017-12-30] MEDS ORDERED: DEXTROSE 5%-WATER - 50 ML IVPB ONE (09:24)
[2017-12-30 09:58] VITALS: BP 134/66; PULSE 92; TEMP 99.2
[2017-12-30] MEDS: CEFTRIAXONE 1 GM in DEXTROSE 5%-WATER - 50 ML IVPB SCH (09:59)
[2017-12-30] MEDS: LOSARTAN POTASSIUM 50 MG TABLET (FP) PO SCH (09:59)
[2017-12-30] MEDS: metoPROLOL SUCCINATE 25 MG TAB.SR.24H (FP) PO SCH (09:59)
[2017-12-30] MEDS: AMILORIDE HCL PO SCH (09:59)
[2017-12-30] MEDS: HYDROCHLOROTHIAZIDE PO SCH (09:59)
== END 2017-12-30 13:45 | disposition home or self-care (01) | DRG 871 ==
LOC: JER 08:02 → JERBED 10:35 → J4W 20:23
PROVIDERS: ADMIT Internal Medicine; ATTEND Internal Medicine
DX: A41.9 Sepsis, unspecified organism (principal); G92 Toxic encephalopathy; N39.0 Urinary tract infection, site not specified; E87.2 Acidosis; R41.82 Altered mental status, unspecified; I10 Essential (primary) hypertension; E11.9 Type 2 diabetes mellitus without complications; E78.5 Hyperlipidemia, unspecified; R53.1 Weakness; B96.20 Unspecified Escherichia coli [E. coli] as the cause of diseases classified elsewhere; E87.6 Hypokalemia; Z79.4 Long term (current) use of insulin
CPT/HCPCS: 36415; 70450-TC; 71045-TC-FY; 76775-TC; 80048; 80053; 80307; 81003; 81015; 82465; 82550; 82803; 82962; 83605; 83718; 83721; 84443; 84478; 84484; 85025; 85610; 85730; 86850; 86900; 86901; 87040; 87086; 87186; 90688; 93005; 93010; 97116-GP; 97161-GP; 99285-25; G0008; J0131; J7030

== ENCOUNTER 2018-03-05 08:07 | Day surgery (SDC) | payer OTHER ==
[2018-03-05 08:48] VITALS: BMI 25.2
[2018-03-05 10:17] VITALS: TEMP 97.8
[2018-03-05 12:08] VITALS: BP 124/65; PULSE 69
--- NOTE | 2018-03-08 18:03 | PATH ---
Surgical Pathology Report Patient Name: ARLEEN LUIS [facility]. Rec. #: [id number] /Age/Gender: 1950 (Age: 67) / F Account: [id number] Location: [facility]-ENDOSCOPY Taken: 03/05/2018 Received: 03/05/2018 Reported: 03/08/2018 Physicians: Beverly Eli M.D. Specimen(s) Received A: BX DUODENUM B: BX ANTRUM C: BX ESOPHAGUS Clinical History Dysphagia, alteration of bowel habits, adenoma surveillance Postoperative diagnosis: Esophageal spasm, GERD, diverticulosis Final Diagnosis A. DUODENUM, SECOND PORTION AND DUODENAL BULB, BIOPSY: DUODENAL MUCOSA WITHOUT SIGNIFICANT PATHOLOGIC FINDINGS. B. STOMACH, ANTRUM, BIOPSY: GASTRIC ANTRAL MUCOSA WITH MILD CHRONIC GASTRITIS. IMMUNOHISTOCHEMICAL STAIN FOR H. PYLORI IS NEGATIVE. C. DISTAL AND MID ESOPHAGUS, BIOPSY: SQUAMOUS MUCOSA WITH FOCAL MILD BASAL CELL HYPERPLASIA AND CHRONIC INFLAMMATION CONSISTENT WITH MILD REFLUX ESOPHAGITIS. NO COLUMNAR MUCOSA, INTESTINAL METAPLASIA, OR DYSPLASIA IDENTIFIED. Electronically Signed Arleen Abrams M.D. Gross Description A. Received in formalin, labeled "biopsy second portion of duodenum and duodenal bulb" are 3 kaufman, irregular portions of soft tissue ranging from 0.3-0.4 cm. in greatest dimension. The specimens are submitted in toto in one cassette. B. Received in formalin, labeled "biopsy antrum" is a kaufman, irregular portion of soft tissue measuring 0.4 cm. in greatest dimension. The specimen is submitted in toto in one cassette. C. Received in formalin, labeled "biopsy distal and mid esophagus" are 4 kaufman, irregular portions of soft tissue ranging from 0.3-0.5 cm. in greatest dimension. The specimens are submitted in toto in one cassette. DL/03/05/2018 saudi03/05/2018
== END 2018-03-05 12:15 | disposition home or self-care (01) ==
LOC: JASU-ENDO 08:07
PROVIDERS: ATTEND Internal Medicine Gastroenterology
PROC: 0DB68ZX Excision of Stomach, Via Natural or Artificial Opening Endoscopic, Diagnostic (ICD-10-PCS; 2018-03-05)
PROC: 0DJD8ZZ Inspection of Lower Intestinal Tract, Via Natural or Artificial Opening Endoscopic (ICD-10-PCS; principal; 2018-03-05 08:45)
DX: Z12.11 Encounter for screening for malignant neoplasm of colon (principal); Z86.010 Personal history of colon polyps; K57.30 Diverticulosis of large intestine without perforation or abscess without bleeding; K64.8 Other hemorrhoids; R19.4 Change in bowel habit; K22.4 Dyskinesia of esophagus; R13.10 Dysphagia, unspecified
CPT/HCPCS: 43239; G0105; 82962; 88305-TC; 88342-TC

== ENCOUNTER 2020-05-01 21:37 | Inpatient (IN) | payer OTHER ==
[2020-05-01 21:55] VITALS: BMI 25.2
[2020-05-01 23:47] LABS: EPI CELLS >36 /uL (0-25.1); HYALINE CASTS 11 /uL (0-3.1); URINE APPEARANCE CLOUDY; URINE BACTERIA >9,000 /uL (0-1359); URINE BILIRUBIN 1+ (NEGATIVE); URINE COLOR DK YELLOW; URINE GLUCOSE (UA) 3+ (NEGATIVE); URINE KETONE TRACE (NEGATIVE); URINE LEUK ESTERASE NEGATIVE (NEGATIVE); URINE NITRITE POSITIVE (NEGATIVE); URINE PROTEIN 3+ (NEGATIVE); URINE RBC 7 /uL (0-23.9); URINE WBC 28 /uL (0-25.8)
[2020-05-01 23:47] LABS: ALLENS TEST POSITIVE; ARTERIAL BLD GAS O2 SATURATION 95.9 mmHg (95-98); ARTERIAL BLOOD GAS BASE EXCESS 0.2 mmol/L (-2-2); ARTERIAL BLOOD GAS PO2 74.1 mmHg (80-100); ARTERIAL BLOOD GAS pH 7.479 (7.350-7.450)
[2020-05-01 23:55] LABS: BASO % 0.3 % (0-2.0); HEMATOCRIT 31.5 % (32.4-45.2); HEMOGLOBIN 10.1 GM/dL (10.7-15.3); LYMPH % 9.4 % (8-40); MCH 21.6 pg (25.7-33.7); MEAN CELL VOLUME 67.5 fl (80-96); MEAN PLT VOLUME 8.2 fl (7.5-11.1); MONO % 3.6 % (3.8-10.2); NEUT % 86.7 % (42.8-82.8); PLATELET COUNT 357 K/MM3 (134-434); RBC 4.67 M/mm3 (3.60-5.2); RDW 17.1 % (11.6-15.6); WHITE BLOOD COUNT 6.5 K/mm3 (4.0-10.0)
[2020-05-02 00:02] LABS: INR 1.09 (0.83-1.09); PROTHROMBIN TIME (PATIENT) 13.4 SEC (9.7-13.0)
[2020-05-02 00:05] LABS: ACTIVATED PTT 30.2 SECONDS (25.2-36.5)
[2020-05-02 00:23] LABS: CHLORIDE 90 mmol/L (98-107); POTASSIUM 4.8 mmol/L (3.5-5.1); SODIUM 127 mmol/L (136-145)
[2020-05-02 00:26] LABS: ANION GAP 11 MMOL/L (8-16); CALCIUM 8.4 mg/dL (8.5-10.1); CO2 26 mmol/L (21-32); GLUCOSE,RANDOM 324 mg/dL (74-106)
[2020-05-02 00:29] LABS: BILIRUBIN,DIRECT 0.1 mg/dL (0.0-0.2); CREATININE 0.9 mg/dL (0.55-1.3); SGOT/AST 75 U/L (15-37); SGPT/ALT 34 U/L (13-61)
[2020-05-02 00:31] LABS: BILIRUBIN,TOTAL 0.4 mg/dL (0.2-1); LDH 627 U/L (84-246); TOT PROT 6.3 g/dl (6.4-8.2)
[2020-05-02 00:32] LABS: ALK PHOS 75 U/L (45-117)
[2020-05-02] MEDS ORDERED: SODIUM CHLORIDE 0.9% 500 ML INFUS.BAG IV ONE (00:53)
[2020-05-02] MEDS ORDERED: CEFTRIAXONE 1 GM/50 ML BAG ONE (00:57)
[2020-05-02 01:21] LABS: VENOUS BASE EXCESS -2.4 mmol/L (-2-2); VENOUS O2 SATURATION 73.8 % (70-80); VENOUS PCO2 38.8 mmHg (38-52); VENOUS PH 7.38 (7.310-7.410)
[2020-05-02 10:57] LABS: MAGNESIUM 1.5 mg/dL (1.8-2.4)
[2020-05-02 11:01] LABS: PHOSPHOROUS 3.4 mg/dL (2.5-4.9)
[2020-05-02] MEDS ORDERED: MAGNESIUM SULF 50% (8.12 MEQ/2 ML-1 GM VIAL) IVPB ONE (11:06)
[2020-05-02] MEDS ORDERED: ENOXAPARIN NA (PORCINE) 40 MG/0.4 ML DISP.SYRIN SQ SCH (11:15)
[2020-05-02] MEDS ORDERED: MAGNESIUM 1GM/D5W - 1 GM/100 ML IVPB IVPB ONE ×2 (11:22→13:02)
[2020-05-02] MEDS ORDERED: ASCORBIC ACID 500 MG TABLET (FP) ONE (11:28)
[2020-05-02] MEDS ORDERED: DEXAMETHASONE SOD PHOSPHATE 4 MG/1 ML VIAL ONE (11:28)
[2020-05-02] MEDS ORDERED: CHOLECALCIFEROL (VIT D3) 1,000 UNIT (25 MCG) TABLET ONE (11:29)
[2020-05-02] MEDS ORDERED: FAMOTIDINE 20 MG/50 ML IVPB 20 MG/50 ML MG IVPB ONE (11:29)
[2020-05-02] MEDS ORDERED: PIPERACILLIN/TAZOB 3.375 GM 3.375 GM in DEXTROSE 5%-WATER - 50 ML IVPB SCH ×2 (11:30→12:00)
[2020-05-02] MEDS: ASCORBIC ACID 500 MG TABLET (FP) PO SCH ×2 (11:35→22:47)
[2020-05-02] MEDS: CHOLECALCIFEROL (VIT D3) 1,000 UNIT (25 MCG) TABLET PO SCH (11:35)
[2020-05-02] MEDS: DEXAMETHASONE SOD PHOSPHATE 4 MG/1 ML VIAL IVPUSH SCH ×2 (11:40→22:46)
[2020-05-02] MEDS: SODIUM CHLORIDE 1,000 ML IV SCH (11:40)
[2020-05-02] MEDS: FAMOTIDINE 20 MG/50 ML IVPB 20 MG/50 ML MG IVPB SCH ×2 (11:40→22:47)
[2020-05-02] MEDS: INSULIN (LEVEMIR) 100 UNITS/ML UNITS SQ SCH ×2 (12:03→22:50)
[2020-05-02] MEDS ORDERED: PIPERACILLIN/TAZOB 3.375 GM 3.375 GM/50 ML BAG IVPB ONE (12:57)
[2020-05-02 13:37] LABS: ARTERIAL BLD GAS O2 SATURATION 95.5 mmHg (95-98); ARTERIAL BLOOD GAS BASE EXCESS 2.6 mmol/L (-2-2); ARTERIAL BLOOD GAS PO2 71.7 mmHg (80-100); ARTERIAL BLOOD GAS pH 7.482 (7.350-7.450)
[2020-05-02 13:42] LABS: ALLENS TEST POSITIVE
[2020-05-02] MEDS ORDERED: REMDESIVIR 200 MG in SODIUM CHLORIDE 210 ML IVPB ONE (15:00)
[2020-05-02] MEDS: INSULIN SLIDING SCALE (NOVOLOG) 1 VIAL SQ SCH ×2 (17:07→22:50)
[2020-05-02] MEDS: ENOXAPARIN NA (PORCINE) 40 MG/0.4 ML DISP.SYRIN SQ SCH ×2 (22:47→23:12)
[2020-05-02] MEDS: ENOXAPARIN NA (PORCINE) 60 MG/0.6 ML DISP.SYRIN SQ SCH (23:13)
[2020-05-03] MEDS: INSULIN (LEVEMIR) 100 UNITS/ML UNITS SQ SCH ×2 (06:05→21:44)
[2020-05-03 07:50] LABS: POTASSIUM 4.3 mmol/L (3.5-5.1)
[2020-05-03 08:04] LABS: ALBUMIN 2.2 g/dl (3.4-5.0); BLOOD UREA NITROGEN 21.1 mg/dL (7-18)
[2020-05-03 08:08] LABS: CREATININE 0.6 mg/dL (0.55-1.3)
[2020-05-03 08:09] LABS: BILIRUBIN,TOTAL 0.7 mg/dL (0.2-1); TOT PROT 5.2 g/dl (6.4-8.2)
[2020-05-03] MEDS: INSULIN SLIDING SCALE (NOVOLOG) 1 VIAL SQ SCH ×4 (08:24→21:45)
[2020-05-03] MEDS ORDERED: FUROSEMIDE 40 MG/4 ML INJECTABLE VIAL IVPUSH ONE (08:32)
[2020-05-03] MEDS ORDERED: cefTRIAXone SODIUM 1 GM VIAL ONE (08:52)
[2020-05-03] MEDS ORDERED: DEXTROSE 5%-WATER - 50 ML IVPB ONE (08:53)
[2020-05-03] MEDS ORDERED: ALPRAZolam 0.25 MG TABLET PO PRN (08:59)
[2020-05-03] MEDS ORDERED: dilTIAZem HCL 25 MG/5 ML - 5 ML VIAL IVPUSH ONE (09:00)
[2020-05-03 09:57] LABS: ARTERIAL BLD GAS O2 SATURATION 86.6 mmHg (95-98); ARTERIAL BLOOD GAS BASE EXCESS -14.3 mmol/L (-2-2); ARTERIAL BLOOD GAS PO2 62.7 mmHg (80-100)
[2020-05-03 10:03] LABS: ARTERIAL BLOOD GAS pH 7.186 (7.350-7.450)
[2020-05-03 10:12] LABS: ARTERIAL BLD GAS O2 SATURATION 47.2 mmHg (95-98); ARTERIAL BLOOD GAS PO2 43.7 mmHg (80-100)
[2020-05-03 10:13] LABS: ALLENS TEST POSITIVE
[2020-05-03 10:14] LABS: VENT MODE A/C; VENT RATE 16
[2020-05-03] MEDS ORDERED: FENTANYL IVPB 500 MCG/100 ML BAG IVPB ONE ×2 (10:46→13:36)
[2020-05-03] MEDS ORDERED: MIDAZOLAM 100 MG/100 ML MG IVPB ONE ×2 (10:49→22:00)
[2020-05-03] MEDS ORDERED: MIDAZOLAM HCL 2 MG/2 ML SINGLE DOSE VIAL ONE (10:50)
[2020-05-03] MEDS ORDERED: ROCURONIUM BROMIDE 50 MG/5 ML SYRINGE ONE ×2 (11:22→12:20)
[2020-05-03 11:39] LABS: BASO % 0.8 % (0-2.0); HEMATOCRIT 39.6 % (32.4-45.2); HEMOGLOBIN 11.3 GM/dL (10.7-15.3); LYMPH % 22.7 % (8-40); MCH 21.1 pg (25.7-33.7); MCHC 28.5 g/dl (32.0-36.0); MEAN CELL VOLUME 74.2 fl (80-96); MEAN PLT VOLUME 8.7 fl (7.5-11.1); MONO % 3.5 % (3.8-10.2); PLATELET COUNT 581 K/MM3 (134-434); RBC 5.33 M/mm3 (3.60-5.2); RDW 17.6 % (11.6-15.6); WHITE BLOOD COUNT 18.6 K/mm3 (4.0-10.0)
[2020-05-03] MEDS: NOREPINEPHRINE BITARTRATE 4,000 MCG in DEXTROSE 5%-WATER - 496 ML IV SCH (11:45)
[2020-05-03] MEDS: VASOPRESSIN 40 UNITS in SODIUM CHLORIDE 98 ML IVPB SCH (11:45)
[2020-05-03 12:02] LABS: POTASSIUM 4.3 mmol/L (3.5-5.1)
[2020-05-03 12:06] LABS: ALBUMIN 2.4 g/dl (3.4-5.0); BLOOD UREA NITROGEN 22.9 mg/dL (7-18); CALCIUM 9.8 mg/dL (8.5-10.1)
[2020-05-03 12:08] LABS: MAGNESIUM 2.6 mg/dL (1.8-2.4)
[2020-05-03 12:09] LABS: CREATININE 1.2 mg/dL (0.55-1.3)
[2020-05-03 12:11] LABS: TOT PROT 5.9 g/dl (6.4-8.2)
[2020-05-03] MEDS ORDERED: ROCURONIUM BROMIDE 50 MG/5 ML VIAL IV ONE (12:20)
[2020-05-03 12:23] LABS: BILIRUBIN,TOTAL 0.8 mg/dL (0.2-1)
[2020-05-03 12:34] LABS: PHOSPHOROUS 8.8 mg/dL (2.5-4.9)
[2020-05-03] MEDS ORDERED: VASOPRESSIN 20 UNITS/ML VIAL IV ONE ×2 (12:34→18:40)
[2020-05-03] MEDS: SODIUM CHLORIDE 1,000 ML IV SCH (12:58)
[2020-05-03] MEDS: ASCORBIC ACID 500 MG TABLET (FP) PO SCH ×2 (12:59→21:45)
[2020-05-03] MEDS: ZINC SULFATE 220 MG CAPSULE (FP) PO SCH (12:59)
[2020-05-03] MEDS: CHOLECALCIFEROL (VIT D3) 1,000 UNIT (25 MCG) TABLET PO SCH (12:59)
[2020-05-03] MEDS: FENTANYL NS IVPB 500 MCG/100 ML BAG IVPB SCH (12:59)
[2020-05-03] MEDS: MIDAZOLAM IN 0.9 % SOD.CHLORID 100 MG/100 ML PLAST..BAG IVPB SCH (12:59)
[2020-05-03] MEDS: DEXAMETHASONE SOD PHOSPHATE 4 MG/1 ML VIAL IVPUSH SCH (13:11)
[2020-05-03] MEDS: CEFTRIAXONE 1 GM in DEXTROSE 5%-WATER - 50 ML IVPB SCH (13:11)
[2020-05-03] MEDS: ENOXAPARIN NA (PORCINE) 60 MG/0.6 ML DISP.SYRIN SQ SCH ×2 (13:12→21:44)
[2020-05-03] MEDS ORDERED: FUROSEMIDE 40 MG/4 ML INJECTABLE VIAL ONE (13:14)
[2020-05-03] MEDS: FAMOTIDINE 20 MG/50 ML IVPB 20 MG/50 ML MG IVPB SCH ×2 (13:21→21:45)
[2020-05-03 13:47] LABS: ARTERIAL BLOOD GAS BASE EXCESS -12.9 mmol/L (-2-2); ARTERIAL BLOOD GAS PO2 55.7 mmHg (80-100); ARTERIAL BLOOD GAS pH 7.257 (7.350-7.450)
[2020-05-03] MEDS ORDERED: REMDESIVIR 100 MG in SODIUM CHLORIDE 230 ML IVPB SCH (15:00)
[2020-05-03] MEDS ORDERED: NOREPINEPHRINE BITARTRATE 4 MG/4 ML ML IV ONE ×2 (16:06→16:12)
[2020-05-03 17:31] LABS: ARTERIAL BLD GAS O2 SATURATION 93.6 mmHg (95-98); ARTERIAL BLOOD GAS BASE EXCESS -5.6 mmol/L (-2-2); ARTERIAL BLOOD GAS PO2 72.4 mmHg (80-100); ARTERIAL BLOOD GAS pH 7.329 (7.350-7.450)
[2020-05-03 17:36] LABS: ALLENS TEST POSITIVE
[2020-05-03 17:38] LABS: VENT MODE AC; VENT RATE 36
[2020-05-03] MEDS ORDERED: FENTANYL NS IVPB 500 MCG/100 ML BAG IVPB ONE (18:39)
[2020-05-04 06:08] LABS: ARTERIAL BLD GAS O2 SATURATION 98.9 mmHg (95-98); ARTERIAL BLOOD GAS BASE EXCESS -5.1 mmol/L (-2-2); ARTERIAL BLOOD GAS PO2 148.9 mmHg (80-100); ARTERIAL BLOOD GAS pH 7.383 (7.350-7.450)
[2020-05-04 06:13] LABS: VENT MODE A/C; VENT RATE 36
[2020-05-04] MEDS: INSULIN (LEVEMIR) 100 UNITS/ML UNITS SQ SCH ×2 (06:51→21:21)
[2020-05-04] MEDS: INSULIN SLIDING SCALE (NOVOLOG) 1 VIAL SQ SCH ×4 (06:51→21:21)
[2020-05-04 08:26] LABS: HEMATOCRIT 35.7 % (32.4-45.2); HEMOGLOBIN 11.2 GM/dL (10.7-15.3); MCH 21.4 pg (25.7-33.7); MCHC 31.3 g/dl (32.0-36.0); MEAN CELL VOLUME 68.3 fl (80-96); MEAN PLT VOLUME 7.4 fl (7.5-11.1); PLATELET COUNT 405 K/MM3 (134-434); RBC 5.23 M/mm3 (3.60-5.2); RDW 17.6 % (11.6-15.6); WHITE BLOOD COUNT 18.8 K/mm3 (4.0-10.0)
[2020-05-04 08:38] LABS: POTASSIUM 4.7 mmol/L (3.5-5.1)
[2020-05-04 08:41] LABS: ALBUMIN 2.3 g/dl (3.4-5.0); BLOOD UREA NITROGEN 36.4 mg/dL (7-18); MAGNESIUM 1.6 mg/dL (1.8-2.4)
[2020-05-04 08:44] LABS: CREATININE 1.1 mg/dL (0.55-1.3); PHOSPHOROUS 3.2 mg/dL (2.5-4.9)
[2020-05-04 08:45] LABS: BILIRUBIN,TOTAL 0.2 mg/dL (0.2-1)
[2020-05-04 08:46] LABS: TOT PROT 5.4 g/dl (6.4-8.2)
[2020-05-04] MEDS ORDERED: MIDAZOLAM 100 MG/100 ML MG IVPB ONE ×2 (09:08→17:23)
[2020-05-04] MEDS ORDERED: ACETAMINOPHEN 1000 MG/100 ML VIAL (NON FORMULARY) IVPB ONE (09:33)
[2020-05-04] MEDS ORDERED: cefTRIAXone SODIUM 1 GM VIAL ONE (09:47)
[2020-05-04] MEDS ORDERED: DEXTROSE 5%-WATER - 50 ML IVPB ONE (09:47)
[2020-05-04] MEDS ORDERED: ACETAMINOPHEN 325 MG TABLET (FP) ONE (09:48)
[2020-05-04] MEDS: DEXAMETHASONE SOD PHOSPHATE 4 MG/1 ML VIAL IVPUSH SCH (09:55)
[2020-05-04] MEDS: FAMOTIDINE 20 MG/50 ML IVPB 20 MG/50 ML MG IVPB SCH ×2 (09:56→21:16)
[2020-05-04] MEDS: ENOXAPARIN NA (PORCINE) 60 MG/0.6 ML DISP.SYRIN SQ SCH ×2 (09:56→21:16)
[2020-05-04] MEDS: CEFTRIAXONE 1 GM in DEXTROSE 5%-WATER - 50 ML IVPB SCH (09:56)
[2020-05-04] MEDS: ASCORBIC ACID 500 MG TABLET (FP) PO SCH ×2 (09:57→21:16)
[2020-05-04] MEDS: MIDAZOLAM IN 0.9 % SOD.CHLORID 100 MG/100 ML PLAST..BAG IVPB SCH (09:57)
[2020-05-04] MEDS: CHOLECALCIFEROL (VIT D3) 1,000 UNIT (25 MCG) TABLET PO SCH (09:57)
[2020-05-04] MEDS: ZINC SULFATE 220 MG CAPSULE (FP) PO SCH (09:57)
[2020-05-04] MEDS: FENTANYL NS IVPB 500 MCG/100 ML BAG IVPB SCH (09:58)
[2020-05-04] MEDS ORDERED: VASOPRESSIN 20 UNITS/ML VIAL IV ONE ×2 (10:31→16:14)
[2020-05-04] MEDS ORDERED: NOREPINEPHRINE BITARTRATE 4 MG/4 ML ML IV ONE ×2 (11:21→18:10)
[2020-05-04] MEDS: NOREPINEPHRINE BITARTRATE 4,000 MCG in DEXTROSE 5%-WATER - 496 ML IV SCH (11:51)
[2020-05-04] MEDS: SODIUM CHLORIDE 1,000 ML IV SCH (11:51)
[2020-05-04] MEDS: VASOPRESSIN 40 UNITS in SODIUM CHLORIDE 98 ML IVPB SCH (11:53)
[2020-05-04] MEDS ORDERED: VANCOMYCIN 1,000 MG in DEXTROSE 5%-WATER - 250 ML IVPB ONE (12:15)
[2020-05-04] MEDS ORDERED: DEXTROSE 5%-WATER 100 ML IVPB ONE (15:13)
[2020-05-04] MEDS ORDERED: PIPERACILLIN/TAZOBACTAM 4.5 GM VIAL IVPB ONE (15:13)
[2020-05-04] MEDS: PIPERACILLIN/TAZOB 4.5 GM 4.5 GM in DEXTROSE 5%-WATER 100 ML IVPB SCH ×2 (15:16→23:23)
[2020-05-04] MEDS ORDERED: FENTANYL NS IVPB 500 MCG/100 ML BAG IVPB ONE (16:13)
[2020-05-04] MEDS: ACETAMINOPHEN 650 MG/20.3 ML ORAL SOLUTION (CUPS) NGT PRN (20:59)
[2020-05-04] MEDS ORDERED: IBUPROFEN 800 MG/8 ML IJ IVPB ONE (22:58)
[2020-05-04] MEDS ORDERED: ACETAMINOPHEN 325 MG TABLET (FP) PO ONE (22:58)
[2020-05-05] MEDS ORDERED: MIDAZOLAM 100 MG/100 ML MG IVPB SCH (01:34)
[2020-05-05] MEDS: MIDAZOLAM 100 MG/100 ML MG IVPB SCH (01:57)
[2020-05-05] MEDS: VASOPRESSIN 40 UNITS in SODIUM CHLORIDE 98 ML IVPB SCH ×3 (03:26→20:20)
[2020-05-05 05:45] LABS: ARTERIAL BLD GAS O2 SATURATION 99.6 mmHg (95-98); ARTERIAL BLOOD GAS BASE EXCESS -5.5 mmol/L (-2-2); ARTERIAL BLOOD GAS pH 7.435 (7.350-7.450)
[2020-05-05 05:46] LABS: VENT MODE A/C; VENT RATE 34
[2020-05-05] MEDS: INSULIN (LEVEMIR) 100 UNITS/ML UNITS SQ SCH ×2 (06:34→22:01)
[2020-05-05] MEDS: INSULIN SLIDING SCALE (NOVOLOG) 1 VIAL SQ SCH ×4 (06:35→22:23)
[2020-05-05] MEDS ORDERED: NOREPINEPHRINE BITARTRATE 4 MG/4 ML ML IV ONE ×2 (07:03→16:14)
[2020-05-05] MEDS ORDERED: MIDAZOLAM 100 MG/100 ML MG IVPB ONE ×2 (07:11→16:59)
[2020-05-05 07:48] LABS: HEMOGLOBIN 10.1 GM/dL (10.7-15.3); MCH 21.5 pg (25.7-33.7); MCHC 31.4 g/dl (32.0-36.0); MEAN CELL VOLUME 68.4 fl (80-96); MEAN PLT VOLUME 7.8 fl (7.5-11.1); PLATELET COUNT 356 K/MM3 (134-434); RBC 4.69 M/mm3 (3.60-5.2); RDW 17.7 % (11.6-15.6); WHITE BLOOD COUNT 16.3 K/mm3 (4.0-10.0)
[2020-05-05] MEDS: PIPERACILLIN/TAZOB 4.5 GM 4.5 GM in DEXTROSE 5%-WATER 100 ML IVPB SCH ×3 (08:00→17:02)
[2020-05-05 08:08] LABS: POTASSIUM 4.1 mmol/L (3.5-5.1)
[2020-05-05 08:11] LABS: CALCIUM 7.2 mg/dL (8.5-10.1)
[2020-05-05 08:12] LABS: ALBUMIN 1.9 g/dl (3.4-5.0); BLOOD UREA NITROGEN 46.6 mg/dL (7-18); MAGNESIUM 1.7 mg/dL (1.8-2.4)
[2020-05-05 08:15] LABS: CREATININE 1.3 mg/dL (0.55-1.3); PHOSPHOROUS 3.3 mg/dL (2.5-4.9)
[2020-05-05 08:16] LABS: BILIRUBIN,TOTAL 0.7 mg/dL (0.2-1); TOT PROT 4.7 g/dl (6.4-8.2)
[2020-05-05] MEDS ORDERED: LACTATED RINGERS SOLUTION 1,000 ML/1,000 ML INFUS.BAG IV STA (08:57)
[2020-05-05] MEDS: FENTANYL IVPB 500 MCG/100 ML BAG IVPB SCH (09:00)
[2020-05-05] MEDS ORDERED: MAGNESIUM SULF 50% (8.12 MEQ/2 ML-1 GM VIAL) IVPB ONE (09:30)
[2020-05-05] MEDS ORDERED: PIPERACILLIN/TAZOBACTAM 4.5 GM VIAL IVPB ONE (09:34)
[2020-05-05] MEDS ORDERED: DEXTROSE 5%-WATER 100 ML IVPB ONE (09:34)
[2020-05-05] MEDS: ASCORBIC ACID 500 MG TABLET (FP) PO SCH ×2 (09:50→22:02)
[2020-05-05] MEDS: FAMOTIDINE 20 MG/50 ML IVPB 20 MG/50 ML MG IVPB SCH ×2 (09:50→22:02)
[2020-05-05] MEDS: ENOXAPARIN NA (PORCINE) 60 MG/0.6 ML DISP.SYRIN SQ SCH ×2 (09:50→22:02)
[2020-05-05] MEDS: ZINC SULFATE 220 MG CAPSULE (FP) PO SCH (09:50)
[2020-05-05] MEDS: POLYETHYLENE GLYCOL 3350 119 GM BTL PO SCH (09:50)
[2020-05-05] MEDS: DEXAMETHASONE SOD PHOSPHATE 4 MG/1 ML VIAL IVPUSH SCH (09:50)
[2020-05-05] MEDS: CHOLECALCIFEROL (VIT D3) 1,000 UNIT (25 MCG) TABLET PO SCH (09:50)
[2020-05-05] MEDS ORDERED: VASOPRESSIN 20 UNITS/ML VIAL IV ONE (10:41)
[2020-05-05] MEDS: NOREPINEPHRINE BITARTRATE 4,000 MCG in DEXTROSE 5%-WATER - 496 ML IV SCH (12:53)
[2020-05-05] MEDS: ACETAMINOPHEN 650 MG/20.3 ML ORAL SOLUTION (CUPS) NGT PRN (17:05)
[2020-05-05] MEDS ORDERED: FENTANYL NS IVPB 500 MCG/100 ML BAG IVPB ONE (22:22)
[2020-05-06] MEDS ORDERED: DEXTROSE 5%-WATER 100 ML IVPB ONE ×3 (04:41→17:01)
[2020-05-06] MEDS ORDERED: PIPERACILLIN/TAZOBACTAM 4.5 GM VIAL IVPB ONE ×3 (04:41→17:01)
[2020-05-06] MEDS: PIPERACILLIN/TAZOB 4.5 GM 4.5 GM in DEXTROSE 5%-WATER 100 ML IVPB SCH ×3 (05:43→17:15)
[2020-05-06] MEDS: NOREPINEPHRINE BITARTRATE 8,000 MCG/500 ML BAG IVPB SCH (05:43)
[2020-05-06] MEDS ORDERED: METOPROLOL TARTRATE 5 MG/5 ML VIAL IVPUSH ONE (06:19)
[2020-05-06] MEDS: INSULIN SLIDING SCALE (NOVOLOG) 1 VIAL SQ SCH (06:40)
[2020-05-06] MEDS: INSULIN (LEVEMIR) 100 UNITS/ML UNITS SQ SCH (06:40)
[2020-05-06] MEDS: VASOPRESSIN 40 UNITS in SODIUM CHLORIDE 98 ML IVPB SCH (06:41)
[2020-05-06] MEDS: MIDAZOLAM 100 MG/100 ML MG IVPB SCH (07:30)
[2020-05-06 07:42] LABS: ARTERIAL BLD GAS O2 SATURATION 67.7 mmHg (95-98); ARTERIAL BLOOD GAS BASE EXCESS -11.8 mmol/L (-2-2); ARTERIAL BLOOD GAS PO2 42.9 mmHg (80-100)
[2020-05-06 07:45] LABS: VENT MODE A/C; VENT RATE 28
[2020-05-06 07:47] LABS: ARTERIAL BLOOD GAS pH 7.191 (7.350-7.450)
[2020-05-06 07:59] LABS: HEMATOCRIT 31.6 % (32.4-45.2); HEMOGLOBIN 9.7 GM/dL (10.7-15.3); MCH 21.1 pg (25.7-33.7); MCHC 30.7 g/dl (32.0-36.0); MEAN CELL VOLUME 68.8 fl (80-96); MEAN PLT VOLUME 8.5 fl (7.5-11.1); PLATELET COUNT 349 K/MM3 (134-434); RBC 4.59 M/mm3 (3.60-5.2); WHITE BLOOD COUNT 21.4 K/mm3 (4.0-10.0)
[2020-05-06 08:07] LABS: POTASSIUM 4.2 mmol/L (3.5-5.1)
[2020-05-06 08:09] LABS: ALBUMIN 1.8 g/dl (3.4-5.0); CALCIUM 7.1 mg/dL (8.5-10.1)
[2020-05-06 08:10] LABS: BLOOD UREA NITROGEN 46.8 mg/dL (7-18); MAGNESIUM 2.2 mg/dL (1.8-2.4)
[2020-05-06 08:13] LABS: CREATININE 1.2 mg/dL (0.55-1.3)
[2020-05-06 08:14] LABS: BILIRUBIN,TOTAL 0.4 mg/dL (0.2-1); TOT PROT 4.7 g/dl (6.4-8.2)
[2020-05-06] MEDS ORDERED: ROCURONIUM BROMIDE 50 MG/5 ML SYRINGE IV ONE (08:21)
[2020-05-06] MEDS ORDERED: ROCURONIUM BROMIDE 50 MG/5 ML SYRINGE ONE (08:22)
[2020-05-06] MEDS: FENTANYL IVPB 500 MCG/100 ML BAG IVPB SCH (09:00)
[2020-05-06] MEDS ORDERED: INSULIN REGULAR HUMAN 100 UNITS/ML *VIAL* (FOR IVP) IVPUSH ONE (09:15)
[2020-05-06] MEDS: ZINC SULFATE 220 MG CAPSULE (FP) PO SCH (09:21)
[2020-05-06] MEDS: FAMOTIDINE 20 MG/50 ML IVPB 20 MG/50 ML MG IVPB SCH ×2 (09:21→21:19)
[2020-05-06] MEDS: CHOLECALCIFEROL (VIT D3) 1,000 UNIT (25 MCG) TABLET PO SCH (09:21)
[2020-05-06] MEDS: ASCORBIC ACID 500 MG TABLET (FP) PO SCH ×2 (09:21→21:19)
[2020-05-06] MEDS: ENOXAPARIN NA (PORCINE) 60 MG/0.6 ML DISP.SYRIN SQ SCH ×2 (09:22→21:18)
[2020-05-06] MEDS: POLYETHYLENE GLYCOL 3350 119 GM BTL PO SCH (09:22)
[2020-05-06] MEDS: DEXAMETHASONE SOD PHOSPHATE 4 MG/1 ML VIAL IVPUSH SCH (09:22)
[2020-05-06] MEDS ORDERED: INSULIN REGULAR 100 UNITS in SODIUM CHLORIDE 99 ML IVPB SCH (09:30)
[2020-05-06] MEDS ORDERED: FUROSEMIDE 40 MG/4 ML INJECTABLE VIAL IVPUSH ONE (10:09)
[2020-05-06] MEDS: VECURONIUM BROMIDE 100 MG/100 ML BAG IVPB SCH (11:13)
[2020-05-06] MEDS ORDERED: VANCOMYCIN 1 GM in D5W (PRE-DOCKED) 1,000 MG/250 ML IVPB ONE (12:26)
[2020-05-06] MEDS ORDERED: VANCOMYCIN 1 GRAM (PRE-DOCKED) 1,000 MG/250 ML BAG IVPB ONE (13:00)
[2020-05-06] MEDS: VANCOMYCIN 1 GRAM (PRE-DOCKED) 1,000 MG/250 ML BAG IVPB SCH (13:30)
[2020-05-06] MEDS ORDERED: FUROSEMIDE 40 MG/4 ML INJECTABLE VIAL IVPUSH SCH ×2 (14:00→16:00)
[2020-05-06] MEDS: INSULIN REGULAR 100 UNITS in SODIUM CHLORIDE 99 ML IVPB SCH (14:25)
[2020-05-06 16:13] LABS: ARTERIAL BLD GAS O2 SATURATION 95.5 mmHg (95-98); ARTERIAL BLOOD GAS BASE EXCESS -8.3 mmol/L (-2-2); ARTERIAL BLOOD GAS PO2 88.2 mmHg (80-100)
[2020-05-06] MEDS ORDERED: IBUPROFEN 800 MG/8 ML IJ IVPB ONE (21:29)
[2020-05-07] MEDS ORDERED: METOPROLOL TARTRATE 5 MG/5 ML VIAL IVPUSH ONE ×2 (00:18→10:49)
[2020-05-07] MEDS: VANCOMYCIN 1 GRAM (PRE-DOCKED) 1,000 MG/250 ML BAG IVPB SCH ×3 (00:57→18:45)
[2020-05-07] MEDS: PIPERACILLIN/TAZOB 4.5 GM 4.5 GM in DEXTROSE 5%-WATER 100 ML IVPB SCH ×3 (01:08→18:42)
[2020-05-07] MEDS: MIDAZOLAM 100 MG/100 ML MG IVPB SCH ×2 (01:58→02:41)
[2020-05-07] MEDS ORDERED: INSULIN (LEVEMIR) 100 UNITS/ML UNITS SQ ONE (02:00)
[2020-05-07] MEDS: FENTANYL IVPB 500 MCG/100 ML BAG IVPB SCH ×2 (02:00→10:45)
[2020-05-07] MEDS: NOREPINEPHRINE BITARTRATE 8,000 MCG/500 ML BAG IVPB SCH ×2 (02:01→04:31)
[2020-05-07] MEDS ORDERED: IBUPROFEN 800 MG/8 ML IJ IVPB ONE (04:00)
[2020-05-07 06:16] LABS: ARTERIAL BLD GAS O2 SATURATION 99.7 mmHg (95-98); ARTERIAL BLOOD GAS BASE EXCESS -2.7 mmol/L (-2-2); ARTERIAL BLOOD GAS PO2 297.2 mmHg (80-100); ARTERIAL BLOOD GAS pH 7.412 (7.350-7.450)
[2020-05-07 06:17] LABS: ALLENS TEST POSITIVE
[2020-05-07 06:18] LABS: VENT MODE A/C; VENT RATE 34
[2020-05-07] MEDS: INSULIN SLIDING SCALE (NOVOLOG) 1 VIAL SQ SCH ×4 (06:57→21:39)
[2020-05-07] MEDS ORDERED: INSULIN SLIDING SCALE (NOVOLOG) 1 VIAL SQ SCH (07:00)
[2020-05-07 07:31] LABS: HEMATOCRIT 33.3 % (32.4-45.2); HEMOGLOBIN 10.4 GM/dL (10.7-15.3); MCHC 31.3 g/dl (32.0-36.0); MEAN CELL VOLUME 67.2 fl (80-96); PLATELET COUNT 374 K/MM3 (134-434); RBC 4.96 M/mm3 (3.60-5.2); RDW 18.1 % (11.6-15.6); WHITE BLOOD COUNT 26.6 K/mm3 (4.0-10.0)
[2020-05-07 07:46] LABS: POTASSIUM 4.5 mmol/L (3.5-5.1)
[2020-05-07 07:52] LABS: ALBUMIN 1.7 g/dl (3.4-5.0); BLOOD UREA NITROGEN 57.1 mg/dL (7-18); CALCIUM 7.1 mg/dL (8.5-10.1)
[2020-05-07 07:53] LABS: MAGNESIUM 2.1 mg/dL (1.8-2.4)
[2020-05-07 07:55] LABS: CREATININE 1.7 mg/dL (0.55-1.3)
[2020-05-07 07:56] LABS: BILIRUBIN,TOTAL 0.4 mg/dL (0.2-1); PHOSPHOROUS 2.1 mg/dL (2.5-4.9); TOT PROT 4.7 g/dl (6.4-8.2)
[2020-05-07] MEDS ORDERED: LACTATED RINGERS SOLUTION 1,000 ML/1,000 ML INFUS.BAG IV STA (09:43)
[2020-05-07] MEDS ORDERED: DEXTROSE 5%-WATER 100 ML IVPB ONE ×2 (10:16→18:17)
[2020-05-07] MEDS ORDERED: PIPERACILLIN/TAZOBACTAM 4.5 GM VIAL IVPB ONE ×2 (10:16→18:17)
[2020-05-07] MEDS: FAMOTIDINE 20 MG/50 ML IVPB 20 MG/50 ML MG IVPB SCH ×2 (10:45→21:32)
[2020-05-07] MEDS: ZINC SULFATE 220 MG CAPSULE (FP) PO SCH (10:46)
[2020-05-07] MEDS: CHOLECALCIFEROL (VIT D3) 1,000 UNIT (25 MCG) TABLET PO SCH (10:46)
[2020-05-07] MEDS: REMDESIVIR 100 MG in SODIUM CHLORIDE 250 ML IVPB SCH (10:46)
[2020-05-07] MEDS: DEXAMETHASONE SOD PHOSPHATE 4 MG/1 ML VIAL IVPUSH SCH (10:46)
[2020-05-07] MEDS: ASCORBIC ACID 500 MG TABLET (FP) PO SCH ×2 (10:47→21:32)
[2020-05-07] MEDS: ENOXAPARIN NA (PORCINE) 60 MG/0.6 ML DISP.SYRIN SQ SCH ×2 (10:47→21:32)
[2020-05-07] MEDS: POLYETHYLENE GLYCOL 3350 119 GM BTL PO SCH (10:48)
[2020-05-07] MEDS: VECURONIUM BROMIDE 100 MG/100 ML BAG IVPB SCH (10:50)
[2020-05-07] MEDS: INSULIN REGULAR 100 UNITS in SODIUM CHLORIDE 99 ML IVPB SCH (15:55)
[2020-05-07] MEDS: NOREPINEPHRINE NS PREMIX 8,000 MCG/500 ML BAG IVPB SCH (15:56)
[2020-05-07] MEDS ORDERED: VANCOMYCIN 1 GRAM (PRE-DOCKED) 1,000 MG/250 ML BAG IVPB SCH (19:00)
[2020-05-08] MEDS ORDERED: VANCOMYCIN/WATER BAGS 1,250 MG/250 ML BAG IVPB SCH (01:00)
[2020-05-08] MEDS: PIPERACILLIN/TAZOB 4.5 GM 4.5 GM in DEXTROSE 5%-WATER 100 ML IVPB SCH ×3 (01:27→17:03)
[2020-05-08] MEDS: MIDAZOLAM 100 MG/100 ML MG IVPB SCH ×3 (02:10→23:59)
[2020-05-08] MEDS: FENTANYL IVPB 500 MCG/100 ML BAG IVPB SCH ×4 (02:59→23:59)
[2020-05-08] MEDS: ACETAMINOPHEN 650 MG/20.3 ML ORAL SOLUTION (CUPS) NGT PRN ×2 (03:12→23:01)
[2020-05-08 05:47] LABS: ARTERIAL BLD GAS O2 SATURATION 95.3 mmHg (95-98); ARTERIAL BLOOD GAS BASE EXCESS -1.4 mmol/L (-2-2); ARTERIAL BLOOD GAS PO2 71.4 mmHg (80-100); ARTERIAL BLOOD GAS pH 7.458 (7.350-7.450)
[2020-05-08 05:51] LABS: ALLENS TEST POSITIVE; VENT MODE A/C; VENT RATE 34
[2020-05-08] MEDS: VANCOMYCIN 1 GRAM (PRE-DOCKED) 1,000 MG/250 ML BAG IVPB SCH (06:11)
[2020-05-08] MEDS: INSULIN SLIDING SCALE (NOVOLOG) 1 VIAL SQ SCH ×5 (06:11→21:53)
[2020-05-08 07:15] LABS: HEMATOCRIT 31.8 % (32.4-45.2); HEMOGLOBIN 9.9 GM/dL (10.7-15.3); MCHC 31.2 g/dl (32.0-36.0); MEAN CELL VOLUME 67.5 fl (80-96); MEAN PLT VOLUME 8.8 fl (7.5-11.1); PLATELET COUNT 304 K/MM3 (134-434); RBC 4.71 M/mm3 (3.60-5.2); RDW 17.7 % (11.6-15.6); WHITE BLOOD COUNT 26.9 K/mm3 (4.0-10.0)
[2020-05-08 07:41] LABS: POTASSIUM 3.9 mmol/L (3.5-5.1)
[2020-05-08 07:43] LABS: ALBUMIN 1.6 g/dl (3.4-5.0); BLOOD UREA NITROGEN 65.9 mg/dL (7-18); CALCIUM 7.2 mg/dL (8.5-10.1); MAGNESIUM 2.1 mg/dL (1.8-2.4)
[2020-05-08 07:46] LABS: CREATININE 1.4 mg/dL (0.55-1.3); PHOSPHOROUS 2.8 mg/dL (2.5-4.9)
[2020-05-08 07:48] LABS: BILIRUBIN,TOTAL 0.4 mg/dL (0.2-1); TOT PROT 4.4 g/dl (6.4-8.2)
[2020-05-08] MEDS ORDERED: PIPERACILLIN/TAZOBACTAM 4.5 GM VIAL IVPB ONE ×2 (09:35→16:12)
[2020-05-08] MEDS ORDERED: DEXTROSE 5%-WATER 100 ML IVPB ONE ×2 (09:35→16:12)
[2020-05-08] MEDS: ZINC SULFATE 220 MG CAPSULE (FP) PO SCH (09:39)
[2020-05-08] MEDS: DEXAMETHASONE SOD PHOSPHATE 4 MG/1 ML VIAL IVPUSH SCH (09:39)
[2020-05-08] MEDS: FAMOTIDINE 20 MG/50 ML IVPB 20 MG/50 ML MG IVPB SCH ×2 (09:39→21:29)
[2020-05-08] MEDS: CHOLECALCIFEROL (VIT D3) 1,000 UNIT (25 MCG) TABLET PO SCH (09:39)
[2020-05-08] MEDS: ENOXAPARIN NA (PORCINE) 40 MG/0.4 ML DISP.SYRIN SQ SCH (09:39)
[2020-05-08] MEDS: VECURONIUM BROMIDE 100 MG/100 ML BAG IVPB SCH (09:40)
[2020-05-08] MEDS: ASCORBIC ACID 500 MG TABLET (FP) PO SCH ×2 (09:40→21:29)
[2020-05-08] MEDS: POLYETHYLENE GLYCOL 3350 119 GM BTL PO SCH (09:41)
[2020-05-08] MEDS: REMDESIVIR 100 MG in SODIUM CHLORIDE 250 ML IVPB SCH (10:40)
[2020-05-08] MEDS: NOREPINEPHRINE NS PREMIX 8,000 MCG/500 ML BAG IVPB SCH (13:15)
[2020-05-08] MEDS ORDERED: FENTANYL IVPB 500 MCG/100 ML BAG IVPB ONE (22:11)
[2020-05-08] MEDS ORDERED: MIDAZOLAM 100 MG/100 ML MG IVPB ONE (22:12)
[2020-05-08] MEDS ORDERED: METOPROLOL TARTRATE 5 MG/5 ML VIAL IVPUSH ONE (23:09)
[2020-05-09] MEDS ORDERED: DEXTROSE 5%-WATER 100 ML IVPB ONE ×3 (02:45→17:05)
[2020-05-09] MEDS ORDERED: PIPERACILLIN/TAZOBACTAM 4.5 GM VIAL IVPB ONE ×3 (02:45→17:05)
[2020-05-09] MEDS: PIPERACILLIN/TAZOB 4.5 GM 4.5 GM in DEXTROSE 5%-WATER 100 ML IVPB SCH ×3 (02:54→17:26)
[2020-05-09] MEDS: INSULIN SLIDING SCALE (NOVOLOG) 1 VIAL SQ SCH ×6 (03:06→22:55)
[2020-05-09] MEDS: MIDAZOLAM 100 MG/100 ML MG IVPB SCH (03:07)
[2020-05-09 06:19] LABS: ARTERIAL BLD GAS O2 SATURATION 99.1 mmHg (95-98); ARTERIAL BLOOD GAS PO2 165.4 mmHg (80-100); ARTERIAL BLOOD GAS pH 7.394 (7.350-7.450)
[2020-05-09 06:23] LABS: VENT MODE A/C; VENT RATE 28
[2020-05-09] MEDS: VANCOMYCIN HCL 1,500 MG in DEXTROSE 5%-WATER - 500 ML IVPB SCH (06:28)
[2020-05-09 08:04] LABS: POTASSIUM 4.8 mmol/L (3.5-5.1)
[2020-05-09 08:06] LABS: ALBUMIN 1.6 g/dl (3.4-5.0); CALCIUM 7.4 mg/dL (8.5-10.1)
[2020-05-09 08:07] LABS: BLOOD UREA NITROGEN 70.4 mg/dL (7-18); MAGNESIUM 2.3 mg/dL (1.8-2.4)
[2020-05-09 08:10] LABS: CREATININE 1.4 mg/dL (0.55-1.3); PHOSPHOROUS 3.7 mg/dL (2.5-4.9)
[2020-05-09 08:11] LABS: BILIRUBIN,TOTAL 0.3 mg/dL (0.2-1); TOT PROT 4.6 g/dl (6.4-8.2)
[2020-05-09] MEDS ORDERED: INSULIN SLIDING SCALE (NOVOLOG) 1 VIAL SQ SCH (08:15)
[2020-05-09] MEDS ORDERED: Insulin (LOG) Aspart 100 UNITS/ML VIAL SQ ONE (08:30)
[2020-05-09] MEDS: FENTANYL IVPB 500 MCG/100 ML BAG IVPB SCH ×2 (08:47→09:27)
[2020-05-09] MEDS ORDERED: FUROSEMIDE 40 MG/4 ML INJECTABLE VIAL IVPUSH ONE (09:00)
[2020-05-09] MEDS: FAMOTIDINE 20 MG/50 ML IVPB 20 MG/50 ML MG IVPB SCH ×2 (09:03→22:04)
[2020-05-09] MEDS: ENOXAPARIN NA (PORCINE) 40 MG/0.4 ML DISP.SYRIN SQ SCH (09:03)
[2020-05-09] MEDS: DEXAMETHASONE SOD PHOSPHATE 4 MG/1 ML VIAL IVPUSH SCH (09:04)
[2020-05-09] MEDS: CHOLECALCIFEROL (VIT D3) 1,000 UNIT (25 MCG) TABLET PO SCH (09:04)
[2020-05-09] MEDS: ZINC SULFATE 220 MG CAPSULE (FP) PO SCH (09:04)
[2020-05-09] MEDS: ASCORBIC ACID 500 MG TABLET (FP) PO SCH ×2 (09:05→22:05)
[2020-05-09] MEDS: POLYETHYLENE GLYCOL 3350 119 GM BTL PO SCH (09:05)
[2020-05-09] MEDS ORDERED: INSULIN (LEVEMIR) 100 UNITS/ML UNITS SQ ONE (09:44)
[2020-05-09] MEDS: INSULIN (LEVEMIR) 100 UNITS/ML UNITS SQ SCH ×2 (10:30→22:55)
[2020-05-09] MEDS: REMDESIVIR 100 MG in SODIUM CHLORIDE 250 ML IVPB SCH (12:10)
[2020-05-09] MEDS: ACETAMINOPHEN 650 MG/20.3 ML ORAL SOLUTION (CUPS) NGT PRN (12:23)
[2020-05-09] MEDS: METOPROLOL TARTRATE 25 MG TABLET (FP) NGT SCH ×2 (12:24→22:04)
[2020-05-09] MEDS: NOREPINEPHRINE NS PREMIX 8,000 MCG/500 ML BAG IVPB SCH (13:31)
[2020-05-09] MEDS: FUROSEMIDE 40 MG/4 ML INJECTABLE VIAL IVPUSH SCH (13:53)
[2020-05-09] MEDS: VECURONIUM BROMIDE 100 MG/100 ML BAG IVPB SCH (19:15)
[2020-05-10] MEDS ORDERED: DEXTROSE 5%-WATER 100 ML IVPB ONE ×3 (02:14→14:52)
[2020-05-10] MEDS ORDERED: PIPERACILLIN/TAZOBACTAM 4.5 GM VIAL IVPB ONE ×3 (02:14→14:52)
[2020-05-10] MEDS ORDERED: FENTANYL NS IVPB 500 MCG/100 ML BAG IVPB ONE ×2 (02:24→16:50)
[2020-05-10] MEDS: PIPERACILLIN/TAZOB 4.5 GM 4.5 GM in DEXTROSE 5%-WATER 100 ML IVPB SCH ×3 (02:29→17:14)
[2020-05-10] MEDS: VANCOMYCIN HCL 1,500 MG in DEXTROSE 5%-WATER - 500 ML IVPB SCH (05:25)
[2020-05-10] MEDS: INSULIN SLIDING SCALE (NOVOLOG) 1 VIAL SQ SCH ×5 (05:43→22:32)
[2020-05-10] MEDS: FUROSEMIDE 40 MG/4 ML INJECTABLE VIAL IVPUSH SCH (05:43)
[2020-05-10 05:47] LABS: ARTERIAL BLOOD GAS PO2 78.1 mmHg (80-100); ARTERIAL BLOOD GAS pH 7.357 (7.350-7.450); HEMATOCRIT 32.8 % (32.4-45.2); HEMOGLOBIN 10.2 GM/dL (10.7-15.3); MCH 21.2 pg (25.7-33.7); MCHC 31.2 g/dl (32.0-36.0); MEAN PLT VOLUME 8.7 fl (7.5-11.1); PLATELET COUNT 319 K/MM3 (134-434); RBC 4.83 M/mm3 (3.60-5.2); RDW 18.2 % (11.6-15.6)
[2020-05-10 05:52] LABS: ALLENS TEST POSITIVE
[2020-05-10 05:53] LABS: VENT MODE A/C; VENT RATE 24
[2020-05-10 05:56] LABS: WHITE BLOOD COUNT 34.6 K/mm3 (4.0-10.0)
[2020-05-10 06:07] LABS: POTASSIUM 4.3 mmol/L (3.5-5.1)
[2020-05-10 06:08] LABS: CALCIUM 7.4 mg/dL (8.5-10.1)
[2020-05-10 06:09] LABS: BLOOD UREA NITROGEN 81.1 mg/dL (7-18); MAGNESIUM 2.1 mg/dL (1.8-2.4)
[2020-05-10 06:12] LABS: CREATININE 1.6 mg/dL (0.55-1.3); PHOSPHOROUS 3.5 mg/dL (2.5-4.9)
[2020-05-10] MEDS: MIDAZOLAM 100 MG/100 ML MG IVPB SCH (06:34)
[2020-05-10] MEDS: INSULIN (LEVEMIR) 100 UNITS/ML UNITS SQ SCH ×2 (06:35→21:50)
[2020-05-10] MEDS: METOPROLOL TARTRATE 5 MG/5 ML VIAL IVPUSH PRN ×2 (08:51→15:19)
[2020-05-10] MEDS: FENTANYL IVPB 500 MCG/100 ML BAG IVPB SCH ×2 (09:00→20:00)
[2020-05-10] MEDS: DEXAMETHASONE SOD PHOSPHATE 4 MG/1 ML VIAL IVPUSH SCH (09:33)
[2020-05-10] MEDS: METOPROLOL TARTRATE 25 MG TABLET (FP) NGT SCH ×2 (09:33→21:50)
[2020-05-10] MEDS: ZINC SULFATE 220 MG CAPSULE (FP) PO SCH (09:33)
[2020-05-10] MEDS: FAMOTIDINE 20 MG/50 ML IVPB 20 MG/50 ML MG IVPB SCH ×2 (09:34→21:51)
[2020-05-10] MEDS: ENOXAPARIN NA (PORCINE) 40 MG/0.4 ML DISP.SYRIN SQ SCH (09:34)
[2020-05-10] MEDS: CHOLECALCIFEROL (VIT D3) 1,000 UNIT (25 MCG) TABLET PO SCH (09:34)
[2020-05-10] MEDS: VECURONIUM BROMIDE 100 MG/100 ML BAG IVPB SCH ×3 (09:34→21:52)
[2020-05-10] MEDS: ASCORBIC ACID 500 MG TABLET (FP) PO SCH ×2 (09:34→21:51)
[2020-05-10] MEDS: POLYETHYLENE GLYCOL 3350 119 GM BTL PO SCH (09:35)
[2020-05-10] MEDS: REMDESIVIR 100 MG in SODIUM CHLORIDE 250 ML IVPB SCH (10:48)
[2020-05-10] MEDS: ACETAMINOPHEN 650 MG/20.3 ML ORAL SOLUTION (CUPS) NGT PRN (10:50)
[2020-05-10] MEDS: NOREPINEPHRINE NS PREMIX 8,000 MCG/500 ML BAG IVPB SCH (13:30)
[2020-05-11] MEDS ORDERED: ACETAMINOPHEN INJECTION 100 ML IVPB ONE (00:22)
[2020-05-11] MEDS ORDERED: ACETAMINOPHEN 1000 MG/100 ML VIAL (NON FORMULARY) IVPB ONE (00:24)
[2020-05-11] MEDS ORDERED: PIPERACILLIN/TAZOBACTAM 4.5 GM VIAL IVPB ONE ×2 (00:54→10:12)
[2020-05-11] MEDS ORDERED: DEXTROSE 5%-WATER 100 ML IVPB ONE ×2 (00:55→10:12)
[2020-05-11] MEDS: PIPERACILLIN/TAZOB 4.5 GM 4.5 GM in DEXTROSE 5%-WATER 100 ML IVPB SCH ×2 (01:15→10:11)
[2020-05-11] MEDS: MIDAZOLAM 100 MG/100 ML MG IVPB SCH (01:26)
[2020-05-11] MEDS: FENTANYL IVPB 500 MCG/100 ML BAG IVPB SCH ×2 (05:43→09:23)
[2020-05-11 06:01] LABS: ARTERIAL BLD GAS O2 SATURATION 93.3 mmHg (95-98); ARTERIAL BLOOD GAS PO2 74.8 mmHg (80-100); ARTERIAL BLOOD GAS pH 7.289 (7.350-7.450)
[2020-05-11 06:03] LABS: VENT MODE A/C; VENT RATE 24
[2020-05-11] MEDS: INSULIN (LEVEMIR) 100 UNITS/ML UNITS SQ SCH ×2 (06:11→22:25)
[2020-05-11] MEDS: INSULIN SLIDING SCALE (NOVOLOG) 1 VIAL SQ SCH ×5 (06:12→22:25)
[2020-05-11 07:00] LABS: HEMATOCRIT 33.3 % (32.4-45.2); HEMOGLOBIN 10.2 GM/dL (10.7-15.3); MCHC 30.6 g/dl (32.0-36.0); MEAN CELL VOLUME 68.6 fl (80-96); PLATELET COUNT 361 K/MM3 (134-434); RBC 4.85 M/mm3 (3.60-5.2); RDW 18.3 % (11.6-15.6)
[2020-05-11 07:12] LABS: POTASSIUM 4.9 mmol/L (3.5-5.1)
[2020-05-11 07:14] LABS: CALCIUM 7.7 mg/dL (8.5-10.1)
[2020-05-11 07:15] LABS: ALBUMIN 1.7 g/dl (3.4-5.0); BLOOD UREA NITROGEN 102.4 mg/dL (7-18); MAGNESIUM 2.3 mg/dL (1.8-2.4)
[2020-05-11 07:18] LABS: CREATININE 2.2 mg/dL (0.55-1.3); PHOSPHOROUS 4.8 mg/dL (2.5-4.9)
[2020-05-11 07:19] LABS: BILIRUBIN,TOTAL 0.4 mg/dL (0.2-1); TOT PROT 4.8 g/dl (6.4-8.2)
[2020-05-11 07:24] LABS: WHITE BLOOD COUNT 33.7 K/mm3 (4.0-10.0)
[2020-05-11] MEDS ORDERED: VANCOMYCIN 1,000 MG in DEXTROSE 5%-WATER - 250 ML IVPB SCH (08:00)
[2020-05-11] MEDS: ENOXAPARIN NA (PORCINE) 40 MG/0.4 ML DISP.SYRIN SQ SCH (09:48)
[2020-05-11] MEDS: DEXAMETHASONE SOD PHOSPHATE 4 MG/1 ML VIAL IVPUSH SCH (09:48)
[2020-05-11] MEDS: METOPROLOL TARTRATE 25 MG TABLET (FP) NGT SCH ×2 (09:48→21:42)
[2020-05-11] MEDS: POLYETHYLENE GLYCOL 3350 119 GM BTL PO SCH (09:50)
[2020-05-11] MEDS: ZINC SULFATE 220 MG CAPSULE (FP) PO SCH (09:51)
[2020-05-11] MEDS: FAMOTIDINE 20 MG/50 ML IVPB 20 MG/50 ML MG IVPB SCH ×2 (09:51→21:42)
[2020-05-11] MEDS: ASCORBIC ACID 500 MG TABLET (FP) PO SCH ×2 (09:51→21:42)
[2020-05-11] MEDS: CHOLECALCIFEROL (VIT D3) 1,000 UNIT (25 MCG) TABLET PO SCH (09:52)
[2020-05-11] MEDS: VECURONIUM BROMIDE 100 MG/100 ML BAG IVPB SCH (10:10)
[2020-05-11] MEDS ORDERED: FUROSEMIDE 40 MG/4 ML INJECTABLE VIAL IVPUSH ONE (10:45)
[2020-05-11] MEDS ORDERED: FUROSEMIDE 40 MG/4 ML INJECTABLE VIAL ONE (10:45)
[2020-05-11] MEDS: REMDESIVIR 100 MG in SODIUM CHLORIDE 250 ML IVPB SCH (11:28)
[2020-05-11] MEDS: CEFEPIME 1 GM in DEXTROSE 5%-WATER 1 GM/100 ML BAG IVPB SCH (21:42)
[2020-05-12] MEDS: MIDAZOLAM 100 MG/100 ML MG IVPB SCH (01:45)
[2020-05-12] MEDS ORDERED: FENTANYL NS IVPB 500 MCG/100 ML BAG IVPB ONE (02:10)
[2020-05-12] MEDS: INSULIN SLIDING SCALE (NOVOLOG) 1 VIAL SQ SCH ×5 (06:08→21:57)
[2020-05-12] MEDS: INSULIN (LEVEMIR) 100 UNITS/ML UNITS SQ SCH ×2 (06:08→22:25)
[2020-05-12 07:04] LABS: BASO % 0.2 % (0-2.0); EOS % 0.1 % (0-4.5); HEMOGLOBIN 9.3 GM/dL (10.7-15.3); LYMPH % 1.9 % (8-40); MCH 21.6 pg (25.7-33.7); MCHC 31.9 g/dl (32.0-36.0); MEAN CELL VOLUME 67.7 fl (80-96); MEAN PLT VOLUME 8.9 fl (7.5-11.1); MONO % 6.3 % (3.8-10.2); NEUT % 91.5 % (42.8-82.8); PLATELET COUNT 353 K/MM3 (134-434); RBC 4.29 M/mm3 (3.60-5.2); WHITE BLOOD COUNT 27.4 K/mm3 (4.0-10.0)
[2020-05-12 07:25] LABS: POTASSIUM 4.8 mmol/L (3.5-5.1)
[2020-05-12 07:27] LABS: CALCIUM 7.9 mg/dL (8.5-10.1)
[2020-05-12 07:28] LABS: ALBUMIN 1.7 g/dl (3.4-5.0); MAGNESIUM 2.4 mg/dL (1.8-2.4)
[2020-05-12 07:31] LABS: CREATININE 2.4 mg/dL (0.55-1.3); PHOSPHOROUS 5.4 mg/dL (2.5-4.9)
[2020-05-12 07:32] LABS: BILIRUBIN,TOTAL 0.3 mg/dL (0.2-1); TOT PROT 4.7 g/dl (6.4-8.2)
[2020-05-12 07:43] LABS: BLOOD UREA NITROGEN 118.3 mg/dL (7-18)
[2020-05-12] MEDS: DEXAMETHASONE SOD PHOSPHATE 4 MG/1 ML VIAL IVPUSH SCH (09:14)
[2020-05-12] MEDS: FENTANYL IVPB 500 MCG/100 ML BAG IVPB SCH (09:14)
[2020-05-12] MEDS: METOPROLOL TARTRATE 25 MG TABLET (FP) NGT SCH ×2 (09:14→21:30)
[2020-05-12] MEDS: ENOXAPARIN NA (PORCINE) 40 MG/0.4 ML DISP.SYRIN SQ SCH (09:14)
[2020-05-12] MEDS: VECURONIUM BROMIDE 100 MG/100 ML BAG IVPB SCH (09:15)
[2020-05-12] MEDS: FAMOTIDINE 20 MG/50 ML IVPB 20 MG/50 ML MG IVPB SCH ×2 (09:15→21:32)
[2020-05-12] MEDS: POLYETHYLENE GLYCOL 3350 119 GM BTL PO SCH (09:15)
[2020-05-12] MEDS: CHOLECALCIFEROL (VIT D3) 1,000 UNIT (25 MCG) TABLET PO SCH (09:15)
[2020-05-12] MEDS: ZINC SULFATE 220 MG CAPSULE (FP) PO SCH (09:15)
[2020-05-12] MEDS: ASCORBIC ACID 500 MG TABLET (FP) PO SCH ×2 (09:15→21:30)
[2020-05-12] MEDS: CEFEPIME 1 GM in DEXTROSE 5%-WATER 1 GM/100 ML BAG IVPB SCH ×2 (09:29→21:32)
[2020-05-12 10:06] LABS: ARTERIAL BLD GAS O2 SATURATION 95.7 mmHg (95-98); ARTERIAL BLOOD GAS BASE EXCESS -2.6 mmol/L (-2-2); ARTERIAL BLOOD GAS PO2 82.9 mmHg (80-100); ARTERIAL BLOOD GAS pH 7.347 (7.350-7.450)
[2020-05-12 10:11] LABS: ALLENS TEST POSITIVE
[2020-05-12 10:12] LABS: VENT RATE 24
[2020-05-12 10:28] LABS: ANISOCYTOSIS 2+; MACROCYTOSIS 0; OVALOCYTE 2+; PLATELET ESTIMATE NORMAL
[2020-05-13] MEDS: MIDAZOLAM 100 MG/100 ML MG IVPB SCH ×2 (01:47→15:10)
[2020-05-13 05:32] LABS: ALLENS TEST POSITIVE; ARTERIAL BLD GAS O2 SATURATION 95.4 mmHg (95-98); ARTERIAL BLOOD GAS BASE EXCESS 0.4 mmol/L (-2-2); ARTERIAL BLOOD GAS PO2 79.2 mmHg (80-100); ARTERIAL BLOOD GAS pH 7.374 (7.350-7.450)
[2020-05-13 05:33] LABS: VENT MODE AC/VC; VENT RATE 24
[2020-05-13] MEDS: INSULIN SLIDING SCALE (NOVOLOG) 1 VIAL SQ SCH ×5 (06:23→22:15)
[2020-05-13] MEDS: INSULIN (LEVEMIR) 100 UNITS/ML UNITS SQ SCH ×2 (06:23→22:29)
[2020-05-13 06:57] LABS: BASO % 0.3 % (0-2.0); EOS % 0.1 % (0-4.5); HEMATOCRIT 27.6 % (32.4-45.2); HEMOGLOBIN 8.7 GM/dL (10.7-15.3); MCH 21.4 pg (25.7-33.7); MCHC 31.6 g/dl (32.0-36.0); MEAN CELL VOLUME 67.6 fl (80-96); MEAN PLT VOLUME 8.9 fl (7.5-11.1); MONO % 6.3 % (3.8-10.2); NEUT % 91.3 % (42.8-82.8); PLATELET COUNT 373 K/MM3 (134-434); RBC 4.08 M/mm3 (3.60-5.2); RDW 18.2 % (11.6-15.6); WHITE BLOOD COUNT 23.7 K/mm3 (4.0-10.0)
[2020-05-13 07:14] LABS: POTASSIUM 4.8 mmol/L (3.5-5.1)
[2020-05-13 07:16] LABS: CALCIUM 7.8 mg/dL (8.5-10.1)
[2020-05-13 07:17] LABS: ALBUMIN 1.5 g/dl (3.4-5.0); MAGNESIUM 2.5 mg/dL (1.8-2.4)
[2020-05-13 07:19] LABS: CREATININE 2.1 mg/dL (0.55-1.3)
[2020-05-13 07:20] LABS: PHOSPHOROUS 5.6 mg/dL (2.5-4.9)
[2020-05-13 07:21] LABS: BILIRUBIN,TOTAL 0.3 mg/dL (0.2-1); TOT PROT 4.6 g/dl (6.4-8.2)
[2020-05-13 08:02] LABS: BLOOD UREA NITROGEN 115.8 mg/dL (7-18)
[2020-05-13] MEDS ORDERED: FUROSEMIDE 40 MG/4 ML INJECTABLE VIAL IVPUSH ONE (08:10)
[2020-05-13 09:29] LABS: ANISOCYTOSIS 1+; MACROCYTOSIS 0; PLATELET ESTIMATE NORMAL
[2020-05-13] MEDS: VECURONIUM BROMIDE 100 MG/100 ML BAG IVPB SCH (10:00)
[2020-05-13 10:04] LABS: EPI CELLS 6 /uL (0-25.1); HYALINE CASTS 4 /uL (0-3.1); URINE APPEARANCE CLOUDY; URINE BACTERIA 353 /uL (0-1359); URINE BILIRUBIN NEGATIVE (NEGATIVE); URINE COLOR YELLOW; URINE GLUCOSE (UA) NEGATIVE (NEGATIVE); URINE KETONE NEGATIVE (NEGATIVE); URINE LEUK ESTERASE 2+ (NEGATIVE); URINE NITRITE NEGATIVE (NEGATIVE); URINE PROTEIN 1+ (NEGATIVE); URINE UROBILINOGEN 0.2 mg/dL (0.2-1.0); URINE WBC 433 /uL (0-25.8)
[2020-05-13 10:08] LABS: URINE RBC 448.8 /uL (0-23.9)
[2020-05-13 10:22] LABS: URINE CRYSTALS NON SEEN /hpf
[2020-05-13] MEDS: CHOLECALCIFEROL (VIT D3) 1,000 UNIT (25 MCG) TABLET PO SCH (10:39)
[2020-05-13] MEDS: ASCORBIC ACID 500 MG TABLET (FP) PO SCH ×2 (10:40→21:51)
[2020-05-13] MEDS: DEXAMETHASONE SOD PHOSPHATE 4 MG/1 ML VIAL IVPUSH SCH (10:40)
[2020-05-13] MEDS: FAMOTIDINE 20 MG/50 ML IVPB 20 MG/50 ML MG IVPB SCH ×2 (10:40→21:52)
[2020-05-13] MEDS: ENOXAPARIN NA (PORCINE) 40 MG/0.4 ML DISP.SYRIN SQ SCH (10:40)
[2020-05-13] MEDS: ZINC SULFATE 220 MG CAPSULE (FP) PO SCH (10:40)
[2020-05-13] MEDS: POLYETHYLENE GLYCOL 3350 119 GM BTL PO SCH (10:41)
[2020-05-13] MEDS: METOPROLOL TARTRATE 25 MG TABLET (FP) NGT SCH ×2 (10:43→21:52)
[2020-05-13] MEDS: CEFEPIME 1 GM in DEXTROSE 5%-WATER 1 GM/100 ML BAG IVPB SCH ×2 (11:00→22:29)
[2020-05-13] MEDS: FENTANYL IVPB 500 MCG/100 ML BAG IVPB SCH ×2 (11:34→22:30)
[2020-05-13] MEDS: ACETAMINOPHEN 650 MG/20.3 ML ORAL SOLUTION (CUPS) NGT PRN (15:11)
[2020-05-14] MEDS: INSULIN SLIDING SCALE (NOVOLOG) 1 VIAL SQ SCH ×5 (06:11→22:28)
[2020-05-14] MEDS: MIDAZOLAM 100 MG/100 ML MG IVPB SCH ×2 (06:11→09:32)
[2020-05-14] MEDS: INSULIN (LEVEMIR) 100 UNITS/ML UNITS SQ SCH ×2 (06:12→22:29)
[2020-05-14 07:57] LABS: BASO % 0.1 % (0-2.0); HEMATOCRIT 24.6 % (32.4-45.2); HEMOGLOBIN 7.6 GM/dL (10.7-15.3); LYMPH % 1.8 % (8-40); MCH 21.3 pg (25.7-33.7); MEAN CELL VOLUME 68.7 fl (80-96); MEAN PLT VOLUME 9.3 fl (7.5-11.1); MONO % 5.3 % (3.8-10.2); NEUT % 92.8 % (42.8-82.8); PLATELET COUNT 347 K/MM3 (134-434); RBC 3.58 M/mm3 (3.60-5.2); RDW 18.3 % (11.6-15.6); WHITE BLOOD COUNT 22.7 K/mm3 (4.0-10.0)
[2020-05-14 08:19] LABS: POTASSIUM 4.8 mmol/L (3.5-5.1)
[2020-05-14 08:21] LABS: ALBUMIN 1.5 g/dl (3.4-5.0); CALCIUM 7.6 mg/dL (8.5-10.1)
[2020-05-14 08:22] LABS: MAGNESIUM 2.5 mg/dL (1.8-2.4)
[2020-05-14 08:25] LABS: CREATININE 1.9 mg/dL (0.55-1.3); PHOSPHOROUS 5.3 mg/dL (2.5-4.9)
[2020-05-14 08:26] LABS: BILIRUBIN,TOTAL 0.5 mg/dL (0.2-1); TOT PROT 4.4 g/dl (6.4-8.2)
[2020-05-14 08:44] LABS: BLOOD UREA NITROGEN 118.6 mg/dL (7-18)
[2020-05-14] MEDS ORDERED: DEXAMETHASONE SOD PHOSPHATE 10 MG/1 ML VIAL ONE (09:12)
[2020-05-14 09:13] LABS: ANISOCYTOSIS 2+; MACROCYTOSIS 0; OVALOCYTE 1+; PLATELET ESTIMATE NORMAL
[2020-05-14] MEDS: DEXAMETHASONE SOD PHOSPHATE 4 MG/1 ML VIAL IVPUSH SCH (09:20)
[2020-05-14] MEDS: METOPROLOL TARTRATE 25 MG TABLET (FP) NGT SCH ×2 (09:20→22:27)
[2020-05-14] MEDS: CEFEPIME 1 GM in DEXTROSE 5%-WATER 1 GM/100 ML BAG IVPB SCH ×2 (09:21→23:20)
[2020-05-14] MEDS: POLYETHYLENE GLYCOL 3350 119 GM BTL PO SCH (09:21)
[2020-05-14] MEDS: ENOXAPARIN NA (PORCINE) 40 MG/0.4 ML DISP.SYRIN SQ SCH (09:21)
[2020-05-14] MEDS: CHOLECALCIFEROL (VIT D3) 1,000 UNIT (25 MCG) TABLET PO SCH (09:22)
[2020-05-14] MEDS: FAMOTIDINE 20 MG/50 ML IVPB 20 MG/50 ML MG IVPB SCH ×2 (09:22→22:27)
[2020-05-14] MEDS: ZINC SULFATE 220 MG CAPSULE (FP) PO SCH (09:22)
[2020-05-14] MEDS: ASCORBIC ACID 500 MG TABLET (FP) PO SCH ×2 (09:22→22:27)
[2020-05-14] MEDS: FENTANYL IVPB 500 MCG/100 ML BAG IVPB SCH (09:32)
[2020-05-14] MEDS ORDERED: FUROSEMIDE 40 MG/4 ML INJECTABLE VIAL IVPUSH SCH (10:00)
[2020-05-14] MEDS: ACETAMINOPHEN 650 MG/20.3 ML ORAL SOLUTION (CUPS) NGT PRN (23:38)
[2020-05-15] MEDS: MIDAZOLAM 100 MG/100 ML MG IVPB SCH (01:53)
[2020-05-15] MEDS: INSULIN SLIDING SCALE (NOVOLOG) 1 VIAL SQ SCH ×5 (06:21→22:40)
[2020-05-15] MEDS: INSULIN (LEVEMIR) 100 UNITS/ML UNITS SQ SCH ×2 (06:22→22:39)
[2020-05-15] MEDS: METOPROLOL TARTRATE 5 MG/5 ML VIAL IVPUSH PRN ×2 (07:58→13:20)
[2020-05-15 09:02] LABS: ARTERIAL BLD GAS O2 SATURATION 94.9 mmHg (95-98); ARTERIAL BLOOD GAS BASE EXCESS 0.5 mmol/L (-2-2); ARTERIAL BLOOD GAS PO2 73.3 mmHg (80-100); ARTERIAL BLOOD GAS pH 7.408 (7.350-7.450)
[2020-05-15 09:05] LABS: VENT MODE A/C; VENT RATE 26
[2020-05-15 09:15] LABS: HEMATOCRIT 22.9 % (32.4-45.2); HEMOGLOBIN 7.3 GM/dL (10.7-15.3); MCH 21.6 pg (25.7-33.7); MCHC 31.7 g/dl (32.0-36.0); MEAN CELL VOLUME 68.2 fl (80-96); MEAN PLT VOLUME 9.3 fl (7.5-11.1); PLATELET COUNT 386 K/MM3 (134-434); RBC 3.36 M/mm3 (3.60-5.2); RDW 18.1 % (11.6-15.6); WHITE BLOOD COUNT 26.5 K/mm3 (4.0-10.0)
[2020-05-15 09:50] LABS: POTASSIUM 4.9 mmol/L (3.5-5.1)
[2020-05-15] MEDS: DEXAMETHASONE SOD PHOSPHATE 4 MG/1 ML VIAL IVPUSH SCH (09:53)
[2020-05-15] MEDS: FAMOTIDINE 20 MG/50 ML IVPB 20 MG/50 ML MG IVPB SCH ×2 (09:53→22:38)
[2020-05-15] MEDS: CEFEPIME 1 GM in DEXTROSE 5%-WATER 1 GM/100 ML BAG IVPB SCH ×2 (09:53→22:30)
[2020-05-15] MEDS: CHOLECALCIFEROL (VIT D3) 1,000 UNIT (25 MCG) TABLET PO SCH (09:54)
[2020-05-15] MEDS: METOPROLOL TARTRATE 25 MG TABLET (FP) NGT SCH ×2 (09:54→22:38)
[2020-05-15] MEDS: ASCORBIC ACID 500 MG TABLET (FP) PO SCH ×2 (09:54→22:38)
[2020-05-15] MEDS: POLYETHYLENE GLYCOL 3350 119 GM BTL PO SCH (09:54)
[2020-05-15] MEDS: ZINC SULFATE 220 MG CAPSULE (FP) PO SCH (09:54)
[2020-05-15 10:05] LABS: ALBUMIN 1.5 g/dl (3.4-5.0)
[2020-05-15 10:07] LABS: CALCIUM 7.8 mg/dL (8.5-10.1)
[2020-05-15 10:10] LABS: CREATININE 1.7 mg/dL (0.55-1.3)
[2020-05-15 10:11] LABS: BILIRUBIN,TOTAL 0.4 mg/dL (0.2-1); TOT PROT 4.6 g/dl (6.4-8.2)
[2020-05-15 10:20] LABS: BLOOD UREA NITROGEN 117.4 mg/dL (7-18)
[2020-05-15] MEDS ORDERED: FUROSEMIDE 40 MG/4 ML INJECTABLE VIAL IVPUSH ONE (10:45)
[2020-05-15] MEDS: ACETAMINOPHEN 650 MG/20.3 ML ORAL SOLUTION (CUPS) NGT PRN (14:04)
[2020-05-15] MEDS: BANATROL PLUS POWDER PACKET GT SCH (22:37)
[2020-05-16] MEDS: BANATROL PLUS POWDER PACKET GT SCH ×3 (06:17→21:13)
[2020-05-16] MEDS: INSULIN SLIDING SCALE (NOVOLOG) 1 VIAL SQ SCH ×5 (06:25→21:27)
[2020-05-16 06:26] LABS: ARTERIAL BLD GAS O2 SATURATION 94.4 mmHg (95-98); ARTERIAL BLOOD GAS BASE EXCESS 2.2 mmol/L (-2-2); ARTERIAL BLOOD GAS PO2 68.9 mmHg (80-100); ARTERIAL BLOOD GAS pH 7.436 (7.350-7.450)
[2020-05-16] MEDS: INSULIN (LEVEMIR) 100 UNITS/ML UNITS SQ SCH ×2 (06:27→21:27)
[2020-05-16 06:41] LABS: VENT MODE A/C; VENT RATE 18
[2020-05-16 09:26] LABS: POTASSIUM 4.5 mmol/L (3.5-5.1)
[2020-05-16 09:27] LABS: CALCIUM 8.1 mg/dL (8.5-10.1)
[2020-05-16 09:28] LABS: ALBUMIN 1.6 g/dl (3.4-5.0)
[2020-05-16 09:31] LABS: CREATININE 1.6 mg/dL (0.55-1.3)
[2020-05-16 09:32] LABS: BILIRUBIN,TOTAL 0.3 mg/dL (0.2-1); TOT PROT 4.9 g/dl (6.4-8.2)
[2020-05-16 09:54] LABS: BLOOD UREA NITROGEN 121.7 mg/dL (7-18)
[2020-05-16] MEDS: MULTIVIT-MINERALS ORAL LIQUID PO SCH (10:24)
[2020-05-16] MEDS: FAMOTIDINE 20 MG/50 ML IVPB 20 MG/50 ML MG IVPB SCH ×2 (10:25→21:12)
[2020-05-16] MEDS: CHOLECALCIFEROL (VIT D3) 1,000 UNIT (25 MCG) TABLET PO SCH (10:25)
[2020-05-16] MEDS: POLYETHYLENE GLYCOL 3350 119 GM BTL PO SCH (10:25)
[2020-05-16] MEDS: CEFEPIME 1 GM in DEXTROSE 5%-WATER 1 GM/100 ML BAG IVPB SCH ×2 (10:25→21:12)
[2020-05-16] MEDS: ZINC SULFATE 220 MG CAPSULE (FP) PO SCH (10:25)
[2020-05-16] MEDS: ASCORBIC ACID 500 MG TABLET (FP) PO SCH ×2 (10:25→21:13)
[2020-05-16] MEDS: DEXAMETHASONE SOD PHOSPHATE 4 MG/1 ML VIAL IVPUSH SCH (10:25)
[2020-05-16 12:02] LABS: HEMATOCRIT 19.2 % (32.4-45.2); MCH 21.5 pg (25.7-33.7); MCHC 31.3 g/dl (32.0-36.0); MEAN CELL VOLUME 68.9 fl (80-96); MEAN PLT VOLUME 9.2 fl (7.5-11.1); PLATELET COUNT 364 K/MM3 (134-434); RBC 2.78 M/mm3 (3.60-5.2); RDW 18.1 % (11.6-15.6)
[2020-05-16 12:09] LABS: WHITE BLOOD COUNT 31.2 K/mm3 (4.0-10.0)
[2020-05-16] MEDS: METOPROLOL TARTRATE 25 MG TABLET (FP) NGT SCH ×2 (13:50→21:13)
[2020-05-16] MEDS: FUROSEMIDE 40 MG/4 ML INJECTABLE VIAL IVPUSH SCH (13:50)
[2020-05-16] MEDS: VANCOMYCIN 1 GRAM (PRE-DOCKED) 1,000 MG/250 ML BAG IVPB SCH (16:46)
[2020-05-17 05:49] LABS: ARTERIAL BLD GAS O2 SATURATION 90.6 mmHg (95-98); ARTERIAL BLOOD GAS BASE EXCESS 0.1 mmol/L (-2-2); ARTERIAL BLOOD GAS PO2 56.2 mmHg (80-100); ARTERIAL BLOOD GAS pH 7.444 (7.350-7.450)
[2020-05-17 06:00] LABS: ALLENS TEST POSITIVE
[2020-05-17 06:01] LABS: VENT MODE A/C; VENT RATE 18
[2020-05-17] MEDS: BANATROL PLUS POWDER PACKET GT SCH ×3 (06:16→23:17)
[2020-05-17] MEDS: METOPROLOL TARTRATE 25 MG TABLET (FP) NGT SCH (06:17)
[2020-05-17] MEDS: FUROSEMIDE 40 MG/4 ML INJECTABLE VIAL IVPUSH SCH (06:17)
[2020-05-17] MEDS: INSULIN (LEVEMIR) 100 UNITS/ML UNITS SQ SCH ×2 (06:18→23:41)
[2020-05-17] MEDS: INSULIN SLIDING SCALE (NOVOLOG) 1 VIAL SQ SCH ×6 (06:40→23:40)
[2020-05-17] MEDS ORDERED: PANTOPRAZOLE SODIUM 40 MG VIAL IVPUSH ONE ×2 (07:51)
[2020-05-17 08:55] LABS: HEMATOCRIT 29.1 % (32.4-45.2); HEMOGLOBIN 9.6 GM/dL (10.7-15.3); MCH 25.6 pg (25.7-33.7); MCHC 33.1 g/dl (32.0-36.0); MEAN CELL VOLUME 77.3 fl (80-96); MEAN PLT VOLUME 9.3 fl (7.5-11.1); PLATELET COUNT 325 K/MM3 (134-434); RBC 3.76 M/mm3 (3.60-5.2); RDW 24.3 % (11.6-15.6); WHITE BLOOD COUNT 34.7 K/mm3 (4.0-10.0)
[2020-05-17 09:22] LABS: POTASSIUM 4.4 mmol/L (3.5-5.1)
[2020-05-17 09:24] LABS: CALCIUM 8.1 mg/dL (8.5-10.1)
[2020-05-17 09:25] LABS: ALBUMIN 1.6 g/dl (3.4-5.0)
[2020-05-17 09:28] LABS: CREATININE 1.5 mg/dL (0.55-1.3)
[2020-05-17 09:29] LABS: BILIRUBIN,TOTAL 0.3 mg/dL (0.2-1); TOT PROT 4.7 g/dl (6.4-8.2)
[2020-05-17] MEDS: DEXAMETHASONE SOD PHOSPHATE 4 MG/1 ML VIAL IVPUSH SCH ×2 (09:36→09:48)
[2020-05-17] MEDS: PANTOPRAZOLE SODIUM 80 MG in SODIUM CHLORIDE 100 ML IVPB SCH ×2 (09:36→18:44)
[2020-05-17] MEDS: MULTIVIT-MINERALS ORAL LIQUID PO SCH (09:37)
[2020-05-17] MEDS: CEFEPIME 1 GM in DEXTROSE 5%-WATER 1 GM/100 ML BAG IVPB SCH ×2 (09:37→23:17)
[2020-05-17] MEDS: POLYETHYLENE GLYCOL 3350 119 GM BTL PO SCH (09:37)
[2020-05-17] MEDS: FAMOTIDINE 20 MG/50 ML IVPB 20 MG/50 ML MG IVPB SCH ×2 (09:38→22:00)
[2020-05-17] MEDS: ZINC SULFATE 220 MG CAPSULE (FP) PO SCH (09:38)
[2020-05-17] MEDS: ASCORBIC ACID 500 MG TABLET (FP) PO SCH ×2 (09:39→23:20)
[2020-05-17] MEDS: CHOLECALCIFEROL (VIT D3) 1,000 UNIT (25 MCG) TABLET PO SCH (09:39)
[2020-05-17 09:40] LABS: BLOOD UREA NITROGEN 119.2 mg/dL (7-18)
[2020-05-17 16:18] LABS: HEMATOCRIT 30.2 % (32.4-45.2); HEMOGLOBIN 9.8 GM/dL (10.7-15.3); MCH 25.1 pg (25.7-33.7); MCHC 32.6 g/dl (32.0-36.0); MEAN PLT VOLUME 9.2 fl (7.5-11.1); PLATELET COUNT 391 K/MM3 (134-434); RBC 3.93 M/mm3 (3.60-5.2)
[2020-05-17 16:37] LABS: WHITE BLOOD COUNT 41.5 K/mm3 (4.0-10.0)
[2020-05-17] MEDS: VANCOMYCIN 1 GRAM (PRE-DOCKED) 1,000 MG/250 ML BAG IVPB SCH (18:44)
[2020-05-17] MEDS ORDERED: METOPROLOL TARTRATE 25 MG TABLET (FP) PO PRN (18:51)
[2020-05-18 05:21] LABS: ARTERIAL BLD GAS O2 SATURATION 96.1 mmHg (95-98); ARTERIAL BLOOD GAS BASE EXCESS 1.8 mmol/L (-2-2); ARTERIAL BLOOD GAS PO2 74.7 mmHg (80-100); ARTERIAL BLOOD GAS pH 7.491 (7.350-7.450)
[2020-05-18 05:28] LABS: ALLENS TEST POSITIVE
[2020-05-18 05:29] LABS: VENT MODE A/C; VENT RATE 18
[2020-05-18] MEDS: PANTOPRAZOLE SODIUM 80 MG in SODIUM CHLORIDE 100 ML IVPB SCH ×2 (07:32→16:55)
[2020-05-18] MEDS: BANATROL PLUS POWDER PACKET GT SCH (07:32)
[2020-05-18] MEDS: INSULIN SLIDING SCALE (NOVOLOG) 1 VIAL SQ SCH ×5 (07:33→22:47)
[2020-05-18] MEDS: INSULIN (LEVEMIR) 100 UNITS/ML UNITS SQ SCH ×2 (07:34→22:49)
[2020-05-18 07:56] LABS: HEMATOCRIT 25.3 % (32.4-45.2); HEMOGLOBIN 8.4 GM/dL (10.7-15.3); MCH 25.5 pg (25.7-33.7); MCHC 33.1 g/dl (32.0-36.0); PLATELET COUNT 317 K/MM3 (134-434); RBC 3.28 M/mm3 (3.60-5.2); RDW 24.2 % (11.6-15.6); WHITE BLOOD COUNT 29.4 K/mm3 (4.0-10.0)
[2020-05-18 08:09] LABS: POTASSIUM 3.8 mmol/L (3.5-5.1)
[2020-05-18 08:15] LABS: CALCIUM 7.8 mg/dL (8.5-10.1)
[2020-05-18 08:16] LABS: ALBUMIN 1.6 g/dl (3.4-5.0)
[2020-05-18 08:19] LABS: BILIRUBIN,TOTAL 0.3 mg/dL (0.2-1); CREATININE 1.5 mg/dL (0.55-1.3)
[2020-05-18 08:21] LABS: TOT PROT 4.8 g/dl (6.4-8.2)
[2020-05-18] MEDS ORDERED: DEXAMETHASONE SOD PHOSPHATE 10 MG/1 ML VIAL ONE (09:33)
[2020-05-18] MEDS: CEFEPIME 1 GM in DEXTROSE 5%-WATER 1 GM/100 ML BAG IVPB SCH ×2 (09:36→22:49)
[2020-05-18] MEDS: MULTIVIT-MINERALS ORAL LIQUID PO SCH (09:49)
[2020-05-18] MEDS: ZINC SULFATE 220 MG CAPSULE (FP) PO SCH (09:50)
[2020-05-18] MEDS: POLYETHYLENE GLYCOL 3350 119 GM BTL PO SCH (09:50)
[2020-05-18] MEDS: CHOLECALCIFEROL (VIT D3) 1,000 UNIT (25 MCG) TABLET PO SCH (09:51)
[2020-05-18] MEDS: ASCORBIC ACID 500 MG TABLET (FP) PO SCH ×2 (09:51→22:49)
[2020-05-18 09:53] LABS: BLOOD UREA NITROGEN 127.2 mg/dL (7-18)
[2020-05-18] MEDS: DEXAMETHASONE SOD PHOSPHATE 4 MG/1 ML VIAL IVPUSH SCH (09:53)
[2020-05-18 14:00] LABS: HEMATOCRIT 24.4 % (32.4-45.2); HEMOGLOBIN 7.9 GM/dL (10.7-15.3); MCH 25.4 pg (25.7-33.7); MCHC 32.5 g/dl (32.0-36.0); MEAN CELL VOLUME 78.2 fl (80-96); MEAN PLT VOLUME 9.3 fl (7.5-11.1); PLATELET COUNT 294 K/MM3 (134-434); RBC 3.12 M/mm3 (3.60-5.2); RDW 24.7 % (11.6-15.6); WHITE BLOOD COUNT 28.4 K/mm3 (4.0-10.0)
[2020-05-18] MEDS: FUROSEMIDE 40 MG/4 ML INJECTABLE VIAL IVPUSH SCH (16:30)
[2020-05-18] MEDS: METOCLOPRAMIDE HCL INJECTION 10 MG/2 ML VIAL IVPUSH SCH ×2 (16:45→22:48)
[2020-05-18] MEDS: AMINO ACIDS 4.25%/D5W 1,000 ML IV SCH (17:03)
[2020-05-18] MEDS: VANCOMYCIN 1 GRAM (PRE-DOCKED) 1,000 MG/250 ML BAG IVPB SCH (17:46)
[2020-05-19] MEDS: METOCLOPRAMIDE HCL INJECTION 10 MG/2 ML VIAL IVPUSH SCH ×3 (06:13→21:28)
[2020-05-19] MEDS: INSULIN SLIDING SCALE (NOVOLOG) 1 VIAL SQ SCH ×5 (06:19→22:39)
[2020-05-19] MEDS: INSULIN (LEVEMIR) 100 UNITS/ML UNITS SQ SCH ×2 (06:19→21:29)
[2020-05-19 06:23] LABS: BASO % 0.2 % (0-2.0); EOS % 0.1 % (0-4.5); HEMATOCRIT 23.4 % (32.4-45.2); HEMOGLOBIN 7.6 GM/dL (10.7-15.3); LYMPH % 2.1 % (8-40); MCH 25.6 pg (25.7-33.7); MCHC 32.6 g/dl (32.0-36.0); MEAN CELL VOLUME 78.6 fl (80-96); MEAN PLT VOLUME 9.1 fl (7.5-11.1); MONO % 1.9 % (3.8-10.2); NEUT % 95.7 % (42.8-82.8); PLATELET COUNT 286 K/MM3 (134-434); RBC 2.98 M/mm3 (3.60-5.2); RDW 25.1 % (11.6-15.6); WHITE BLOOD COUNT 28.3 K/mm3 (4.0-10.0)
[2020-05-19 06:33] LABS: INR 1.01 (0.83-1.09); PROTHROMBIN TIME (PATIENT) 12.4 SEC (9.7-13.0)
[2020-05-19 06:35] LABS: POTASSIUM 3.4 mmol/L (3.5-5.1)
[2020-05-19 06:38] LABS: CALCIUM 7.8 mg/dL (8.5-10.1)
[2020-05-19 06:42] LABS: CREATININE 1.6 mg/dL (0.55-1.3)
[2020-05-19 07:16] LABS: BLOOD UREA NITROGEN 113.4 mg/dL (7-18)
[2020-05-19 08:51] LABS: ANISOCYTOSIS 2+; MACROCYTOSIS 0; OVALOCYTE 1+; PLATELET ESTIMATE NORMAL
[2020-05-19 09:16] LABS: RETICULOCYTES 2.31 % (0.5-1.5)
[2020-05-19] MEDS: MULTIVIT-MINERALS ORAL LIQUID PO SCH (09:24)
[2020-05-19] MEDS: CEFEPIME 1 GM in DEXTROSE 5%-WATER 1 GM/100 ML BAG IVPB SCH ×2 (09:25→21:27)
[2020-05-19] MEDS: AMINO ACIDS 4.25%/D5W 1,000 ML IV SCH (09:25)
[2020-05-19] MEDS: CHOLECALCIFEROL (VIT D3) 1,000 UNIT (25 MCG) TABLET PO SCH (09:28)
[2020-05-19] MEDS: FUROSEMIDE 40 MG/4 ML INJECTABLE VIAL IVPUSH SCH (09:28)
[2020-05-19] MEDS: DEXAMETHASONE SOD PHOSPHATE 4 MG/1 ML VIAL IVPUSH SCH (09:28)
[2020-05-19] MEDS: ZINC SULFATE 220 MG CAPSULE (FP) PO SCH (09:28)
[2020-05-19] MEDS: ASCORBIC ACID 500 MG TABLET (FP) PO SCH ×2 (09:28→21:29)
[2020-05-19] MEDS: PANTOPRAZOLE SODIUM 80 MG in SODIUM CHLORIDE 100 ML IVPB SCH ×3 (09:29→20:37)
[2020-05-19] MEDS: POLYETHYLENE GLYCOL 3350 119 GM BTL PO SCH (09:29)
[2020-05-19] MEDS ORDERED: POTASSIUM CHLORIDE ORAL LIQUID 20 MEQ/15 ML PO SCH (10:00)
[2020-05-19] MEDS: METOPROLOL TARTRATE 25 MG TABLET (FP) PO PRN ×2 (10:06→22:53)
[2020-05-19] MEDS: POTASSIUM CHLORIDE ORAL LIQUID 20 MEQ/15 ML NGT SCH ×2 (12:59→22:52)
[2020-05-19] MEDS: VANCOMYCIN 1 GRAM (PRE-DOCKED) 1,000 MG/250 ML BAG IVPB SCH (16:48)
[2020-05-20] MEDS: AMINO ACIDS 4.25%/D5W 1,000 ML IV SCH (02:53)
[2020-05-20] MEDS: INSULIN SLIDING SCALE (NOVOLOG) 1 VIAL SQ SCH ×5 (06:05→21:39)
[2020-05-20] MEDS: METOCLOPRAMIDE HCL INJECTION 10 MG/2 ML VIAL IVPUSH SCH ×3 (06:05→21:39)
[2020-05-20] MEDS: INSULIN (LEVEMIR) 100 UNITS/ML UNITS SQ SCH ×2 (06:05→21:38)
[2020-05-20] MEDS: PANTOPRAZOLE SODIUM 80 MG in SODIUM CHLORIDE 100 ML IVPB SCH (06:06)
[2020-05-20 10:01] LABS: BASO % 0.3 % (0-2.0); EOS % 0.1 % (0-4.5); HEMATOCRIT 20.6 % (32.4-45.2); HEMOGLOBIN 6.7 GM/dL (10.7-15.3); LYMPH % 1.9 % (8-40); MCH 25.9 pg (25.7-33.7); MCHC 32.5 g/dl (32.0-36.0); MEAN CELL VOLUME 79.6 fl (80-96); MEAN PLT VOLUME 8.9 fl (7.5-11.1); MONO % 1.7 % (3.8-10.2); PLATELET COUNT 254 K/MM3 (134-434); RBC 2.59 M/mm3 (3.60-5.2); RDW 25.8 % (11.6-15.6)
[2020-05-20 10:22] LABS: POTASSIUM 3.5 mmol/L (3.5-5.1)
[2020-05-20] MEDS: FUROSEMIDE 40 MG/4 ML INJECTABLE VIAL IVPUSH SCH (10:25)
[2020-05-20] MEDS: POLYETHYLENE GLYCOL 3350 119 GM BTL PO SCH (10:25)
[2020-05-20] MEDS: MULTIVIT-MINERALS ORAL LIQUID PO SCH (10:25)
[2020-05-20] MEDS: CHOLECALCIFEROL (VIT D3) 1,000 UNIT (25 MCG) TABLET PO SCH (10:26)
[2020-05-20] MEDS: POTASSIUM CHLORIDE ORAL LIQUID 20 MEQ/15 ML NGT SCH ×2 (10:26→21:39)
[2020-05-20] MEDS: ASCORBIC ACID 500 MG TABLET (FP) PO SCH ×2 (10:26→21:39)
[2020-05-20] MEDS: PANTOPRAZOLE SODIUM 40 MG VIAL IVPUSH SCH ×2 (10:26→21:39)
[2020-05-20] MEDS: ZINC SULFATE 220 MG CAPSULE (FP) PO SCH (10:26)
[2020-05-20 10:27] LABS: MAGNESIUM 2.2 mg/dL (1.8-2.4)
[2020-05-20 10:29] LABS: CALCIUM 7.5 mg/dL (8.5-10.1)
[2020-05-20 10:30] LABS: CREATININE 1.6 mg/dL (0.55-1.3); PHOSPHOROUS 3.4 mg/dL (2.5-4.9)
[2020-05-20] MEDS: CEFEPIME 1 GM in DEXTROSE 5%-WATER 1 GM/100 ML BAG IVPB SCH ×2 (10:40→21:38)
[2020-05-20 10:45] LABS: ANISOCYTOSIS 3+; MACROCYTOSIS 0; PLATELET ESTIMATE NORMAL
[2020-05-20 11:16] LABS: BLOOD UREA NITROGEN 114.9 mg/dL (7-18)
[2020-05-20] MEDS: ACETAMINOPHEN 650 MG/20.3 ML ORAL SOLUTION (CUPS) NGT PRN (15:02)
[2020-05-20] MEDS: VANCOMYCIN 1 GRAM (PRE-DOCKED) 1,000 MG/250 ML BAG IVPB SCH (17:35)
[2020-05-21 01:09] LABS: HEMATOCRIT 26.9 % (32.4-45.2); HEMOGLOBIN 8.7 GM/dL (10.7-15.3); MCH 26.5 pg (25.7-33.7); MCHC 32.2 g/dl (32.0-36.0); MEAN CELL VOLUME 82.3 fl (80-96); MEAN PLT VOLUME 8.8 fl (7.5-11.1); PLATELET COUNT 225 K/MM3 (134-434); RBC 3.27 M/mm3 (3.60-5.2); RDW 23.5 % (11.6-15.6); WHITE BLOOD COUNT 25.3 K/mm3 (4.0-10.0)
[2020-05-21] MEDS: METOCLOPRAMIDE HCL INJECTION 10 MG/2 ML VIAL IVPUSH SCH ×3 (05:43→21:06)
[2020-05-21] MEDS ORDERED: DEXTROSE 50%-WATER - 25 GM/50 ML VIAL IVPUSH ONE (06:35)
[2020-05-21] MEDS ORDERED: DEXTROSE 5%-NORMAL SALINE 1,000 ML IV SCH (06:45)
[2020-05-21] MEDS: INSULIN (LEVEMIR) 100 UNITS/ML UNITS SQ SCH ×2 (06:56→21:06)
[2020-05-21] MEDS: INSULIN SLIDING SCALE (NOVOLOG) 1 VIAL SQ SCH ×5 (06:56→21:10)
[2020-05-21 08:13] LABS: BASO % 0.8 % (0-2.0); EOS % 0.3 % (0-4.5); HEMATOCRIT 26.1 % (32.4-45.2); HEMOGLOBIN 8.7 GM/dL (10.7-15.3); LYMPH % 2.2 % (8-40); MCH 27.2 pg (25.7-33.7); MCHC 33.2 g/dl (32.0-36.0); MEAN CELL VOLUME 81.7 fl (80-96); MONO % 1.6 % (3.8-10.2); NEUT % 95.1 % (42.8-82.8); PLATELET COUNT 225 K/MM3 (134-434); RBC 3.19 M/mm3 (3.60-5.2); RDW 23.4 % (11.6-15.6); WHITE BLOOD COUNT 25.8 K/mm3 (4.0-10.0)
[2020-05-21 08:33] LABS: POTASSIUM 3.5 mmol/L (3.5-5.1)
[2020-05-21 08:41] LABS: CALCIUM 7.6 mg/dL (8.5-10.1); MAGNESIUM 2.2 mg/dL (1.8-2.4)
[2020-05-21 08:43] LABS: CREATININE 1.5 mg/dL (0.55-1.3)
[2020-05-21 08:44] LABS: PHOSPHOROUS 3.7 mg/dL (2.5-4.9)
[2020-05-21 09:06] LABS: BLOOD UREA NITROGEN 111.1 mg/dL (7-18)
[2020-05-21 09:32] LABS: ANISOCYTOSIS 1+; MACROCYTOSIS 0; PLATELET ESTIMATE NORMAL
[2020-05-21] MEDS: FUROSEMIDE 40 MG/4 ML INJECTABLE VIAL IVPUSH SCH (09:35)
[2020-05-21] MEDS: CEFEPIME 1 GM in DEXTROSE 5%-WATER 1 GM/100 ML BAG IVPB SCH (09:35)
[2020-05-21] MEDS: MULTIVIT-MINERALS ORAL LIQUID PO SCH (09:36)
[2020-05-21] MEDS: CHOLECALCIFEROL (VIT D3) 1,000 UNIT (25 MCG) TABLET PO SCH (09:37)
[2020-05-21] MEDS: ASCORBIC ACID 500 MG TABLET (FP) PO SCH ×2 (09:37→21:06)
[2020-05-21] MEDS: PANTOPRAZOLE SODIUM 40 MG VIAL IVPUSH SCH ×2 (09:37→21:06)
[2020-05-21] MEDS: ZINC SULFATE 220 MG CAPSULE (FP) PO SCH (09:37)
[2020-05-21] MEDS: METOPROLOL TARTRATE 25 MG TABLET (FP) PO SCH ×2 (09:37→21:06)
[2020-05-21] MEDS: POLYETHYLENE GLYCOL 3350 119 GM BTL PO SCH (09:39)
[2020-05-22] MEDS ORDERED: INSULIN SLIDING SCALE (NOVOLOG) 1 VIAL SQ SCH (00:30)
[2020-05-22] MEDS: INSULIN SLIDING SCALE (NOVOLOG) 1 VIAL SQ SCH ×4 (00:45→18:35)
[2020-05-22] MEDS: METOCLOPRAMIDE HCL INJECTION 10 MG/2 ML VIAL IVPUSH SCH ×3 (05:42→21:41)
[2020-05-22] MEDS: INSULIN (LEVEMIR) 100 UNITS/ML UNITS SQ SCH ×2 (06:07→21:42)
[2020-05-22 06:14] LABS: HEMOGLOBIN 8.8 GM/dL (10.7-15.3); MCH 27.5 pg (25.7-33.7); MCHC 33.8 g/dl (32.0-36.0); MEAN CELL VOLUME 81.3 fl (80-96); MEAN PLT VOLUME 8.7 fl (7.5-11.1); PLATELET COUNT 229 K/MM3 (134-434); RDW 23.8 % (11.6-15.6); WHITE BLOOD COUNT 21.8 K/mm3 (4.0-10.0)
[2020-05-22 06:41] LABS: CALCIUM 7.8 mg/dL (8.5-10.1)
[2020-05-22 06:45] LABS: CREATININE 1.6 mg/dL (0.55-1.3)
[2020-05-22 06:50] LABS: BLOOD UREA NITROGEN 113.4 mg/dL (7-18)
[2020-05-22] MEDS ORDERED: SODIUM CHLORIDE 1,000 ML IV STA (06:57)
[2020-05-22] MEDS ORDERED: DEXTROSE 5%-WATER - 1,000 ML IV SCH (07:45)
[2020-05-22] MEDS: FUROSEMIDE 40 MG/4 ML INJECTABLE VIAL IVPUSH SCH (09:27)
[2020-05-22] MEDS: PANTOPRAZOLE SODIUM 40 MG VIAL IVPUSH SCH ×2 (09:27→21:42)
[2020-05-22] MEDS: ASCORBIC ACID 500 MG TABLET (FP) PO SCH ×2 (09:27→21:42)
[2020-05-22] MEDS: MULTIVIT-MINERALS ORAL LIQUID PO SCH (09:28)
[2020-05-22] MEDS: METOPROLOL TARTRATE 25 MG TABLET (FP) PO SCH ×2 (09:28→21:42)
[2020-05-22] MEDS: ZINC SULFATE 220 MG CAPSULE (FP) PO SCH (09:28)
[2020-05-22] MEDS: CHOLECALCIFEROL (VIT D3) 1,000 UNIT (25 MCG) TABLET PO SCH (09:28)
[2020-05-22] MEDS: KCL 10 MEQ IVPB 10 MEQ/100 ML INFUS.BAG IVPB SCH ×3 (10:03→12:51)
[2020-05-22] MEDS: HEPARIN NA (PORCINE) 5,000 UNITS/ML 1ML VIAL SQ SCH ×2 (14:15→21:41)
[2020-05-22] MEDS: POLYETHYLENE GLYCOL 3350 119 GM BTL PO SCH (14:16)
[2020-05-22] MEDS: ACETAMINOPHEN 650 MG/20.3 ML ORAL SOLUTION (CUPS) NGT PRN ×2 (14:42→21:41)
[2020-05-22] MEDS: METOPROLOL TARTRATE 5 MG/5 ML VIAL IVPUSH PRN (15:03)
[2020-05-23] MEDS: NYSTATIN 100,000 UNIT/GM TOPICAL CREAM 15 GM TUBE TP SCH
[2020-05-23] MEDS: INSULIN SLIDING SCALE (NOVOLOG) 1 VIAL SQ SCH ×4 (00:28→18:39)
[2020-05-23] MEDS: METOCLOPRAMIDE HCL INJECTION 10 MG/2 ML VIAL IVPUSH SCH ×3 (05:17→21:23)
[2020-05-23] MEDS: HEPARIN NA (PORCINE) 5,000 UNITS/ML 1ML VIAL SQ SCH ×3 (05:17→21:23)
[2020-05-23 07:28] LABS: BASO % 0.4 % (0-2.0); EOS % 0.5 % (0-4.5); HEMOGLOBIN 8.2 GM/dL (10.7-15.3); LYMPH % 2.8 % (8-40); MCH 27.3 pg (25.7-33.7); MCHC 32.7 g/dl (32.0-36.0); MEAN CELL VOLUME 83.3 fl (80-96); MEAN PLT VOLUME 9.2 fl (7.5-11.1); NEUT % 93.3 % (42.8-82.8); PLATELET COUNT 207 K/MM3 (134-434); RDW 24.1 % (11.6-15.6); WHITE BLOOD COUNT 16.7 K/mm3 (4.0-10.0)
[2020-05-23 07:52] LABS: POTASSIUM 3.8 mmol/L (3.5-5.1)
[2020-05-23 07:54] LABS: CALCIUM 7.7 mg/dL (8.5-10.1)
[2020-05-23 07:55] LABS: ALBUMIN 1.3 g/dl (3.4-5.0); MAGNESIUM 2.3 mg/dL (1.8-2.4)
[2020-05-23 07:58] LABS: PHOSPHOROUS 4.9 mg/dL (2.5-4.9)
[2020-05-23 07:59] LABS: BILIRUBIN,TOTAL 0.4 mg/dL (0.2-1); TOT PROT 4.7 g/dl (6.4-8.2)
[2020-05-23 08:44] LABS: BLOOD UREA NITROGEN 128.4 mg/dL (7-18)
[2020-05-23] MEDS ORDERED: PT OWN MED DRAWER 7, Y5N ONE ×2 (08:47→21:16)
[2020-05-23] MEDS: MULTIVIT-MINERALS ORAL LIQUID PO SCH (09:17)
[2020-05-23] MEDS: METOPROLOL TARTRATE 25 MG TABLET (FP) PO SCH ×2 (09:17→21:23)
[2020-05-23] MEDS: FUROSEMIDE 40 MG/4 ML INJECTABLE VIAL IVPUSH SCH (09:17)
[2020-05-23] MEDS: ASCORBIC ACID 500 MG TABLET (FP) PO SCH ×2 (09:17→21:23)
[2020-05-23] MEDS: POLYETHYLENE GLYCOL 3350 119 GM BTL PO SCH (09:17)
[2020-05-23] MEDS: ZINC SULFATE 220 MG CAPSULE (FP) PO SCH (09:17)
[2020-05-23] MEDS: PANTOPRAZOLE SODIUM 40 MG VIAL IVPUSH SCH ×2 (09:17→21:23)
[2020-05-23] MEDS: CHOLECALCIFEROL (VIT D3) 1,000 UNIT (25 MCG) TABLET PO SCH (09:17)
[2020-05-23 09:53] LABS: ANISOCYTOSIS 1+; MACROCYTOSIS 0; PLATELET ESTIMATE NORMAL
[2020-05-23] MEDS ORDERED: DEXTROSE 5%-WATER 1000 ML INFUS.BAG IV ONE (12:12)
[2020-05-23] MEDS: INSULIN (LEVEMIR) 100 UNITS/ML UNITS SQ SCH ×2 (21:24→21:25)
[2020-05-23 22:15] LABS: MAGNESIUM 2.2 mg/dL (1.8-2.4)
[2020-05-23 22:19] LABS: PHOSPHOROUS 5.4 mg/dL (2.5-4.9)
[2020-05-24] MEDS: INSULIN SLIDING SCALE (NOVOLOG) 1 VIAL SQ SCH ×4 (01:31→19:22)
[2020-05-24] MEDS: NYSTATIN 100,000 UNIT/GM TOPICAL CREAM 15 GM TUBE TP SCH ×3 (06:48→19:23)
[2020-05-24] MEDS: HEPARIN NA (PORCINE) 5,000 UNITS/ML 1ML VIAL SQ SCH ×3 (06:48→22:02)
[2020-05-24] MEDS: INSULIN (LEVEMIR) 100 UNITS/ML UNITS SQ SCH ×2 (06:49→22:03)
[2020-05-24] MEDS: METOCLOPRAMIDE HCL INJECTION 10 MG/2 ML VIAL IVPUSH SCH ×3 (06:49→22:04)
[2020-05-24 07:29] LABS: HEMATOCRIT 23.7 % (32.4-45.2); HEMOGLOBIN 7.8 GM/dL (10.7-15.3); MCH 27.5 pg (25.7-33.7); MCHC 32.8 g/dl (32.0-36.0); MEAN PLT VOLUME 9.2 fl (7.5-11.1); PLATELET COUNT 189 K/MM3 (134-434); RBC 2.82 M/mm3 (3.60-5.2); RDW 24.7 % (11.6-15.6); WHITE BLOOD COUNT 10.3 K/mm3 (4.0-10.0)
[2020-05-24 07:50] LABS: POTASSIUM 4.1 mmol/L (3.5-5.1)
[2020-05-24 07:54] LABS: ALBUMIN 1.3 g/dl (3.4-5.0); CALCIUM 7.5 mg/dL (8.5-10.1)
[2020-05-24 07:57] LABS: CREATININE 2.3 mg/dL (0.55-1.3)
[2020-05-24 07:59] LABS: BILIRUBIN,TOTAL 0.4 mg/dL (0.2-1); TOT PROT 4.5 g/dl (6.4-8.2)
[2020-05-24 08:39] LABS: BLOOD UREA NITROGEN 131.2 mg/dL (7-18)
[2020-05-24 10:08] LABS: URINE APPEARANCE TURBID; URINE BILIRUBIN NEGATIVE (NEGATIVE); URINE COLOR YELLOW; URINE GLUCOSE (UA) NEGATIVE (NEGATIVE); URINE KETONE NEGATIVE (NEGATIVE); URINE PROTEIN 1+ (NEGATIVE)
[2020-05-24 10:09] LABS: URINE LEUK ESTERASE 1+ (NEGATIVE); URINE NITRITE NEGATIVE (NEGATIVE); URINE UROBILINOGEN 0.2 mg/dL (0.2-1.0)
[2020-05-24 10:10] LABS: EPI CELLS 10 /uL (0-25.1); HYALINE CASTS 15 /uL (0-3.1); URINE BACTERIA 25 /uL (0-1359); URINE RBC 224 /uL (0-23.9); URINE WBC 3131 /uL (0-25.8)
[2020-05-24 10:11] LABS: YEAST NON SEEN (NEGATIVE)
[2020-05-24] MEDS: METOPROLOL TARTRATE 25 MG TABLET (FP) PO SCH ×2 (10:17→22:05)
[2020-05-24] MEDS: ZINC SULFATE 220 MG CAPSULE (FP) PO SCH (10:17)
[2020-05-24] MEDS: PANTOPRAZOLE SODIUM 40 MG VIAL IVPUSH SCH ×2 (10:17→22:04)
[2020-05-24] MEDS: ASCORBIC ACID 500 MG TABLET (FP) PO SCH ×2 (10:18→22:04)
[2020-05-24] MEDS: MULTIVIT-MINERALS ORAL LIQUID PO SCH (10:18)
[2020-05-24] MEDS: POLYETHYLENE GLYCOL 3350 119 GM BTL PO SCH (10:19)
[2020-05-24] MEDS: CHOLECALCIFEROL (VIT D3) 1,000 UNIT (25 MCG) TABLET PO SCH (10:20)
[2020-05-24] MEDS ORDERED: FUROSEMIDE 40 MG/4 ML INJECTABLE VIAL IVPUSH ONE (16:33)
[2020-05-24 19:21] LABS: MAGNESIUM 2.2 mg/dL (1.8-2.4)
[2020-05-25] MEDS: ACETAMINOPHEN 650 MG/20.3 ML ORAL SOLUTION (CUPS) NGT PRN (03:06)
[2020-05-25] MEDS: INSULIN SLIDING SCALE (NOVOLOG) 1 VIAL SQ SCH ×4 (03:06→19:17)
[2020-05-25] MEDS: HEPARIN NA (PORCINE) 5,000 UNITS/ML 1ML VIAL SQ SCH ×2 (05:58→13:46)
[2020-05-25] MEDS: NYSTATIN 100,000 UNIT/GM TOPICAL CREAM 15 GM TUBE TP SCH ×4 (05:59→18:30)
[2020-05-25] MEDS: METOCLOPRAMIDE HCL INJECTION 10 MG/2 ML VIAL IVPUSH SCH ×3 (05:59→21:16)
[2020-05-25] MEDS: INSULIN (LEVEMIR) 100 UNITS/ML UNITS SQ SCH ×2 (06:17→21:15)
[2020-05-25 07:28] LABS: HEMATOCRIT 20.2 % (32.4-45.2); MCH 27.4 pg (25.7-33.7); MCHC 32.9 g/dl (32.0-36.0); MEAN CELL VOLUME 83.3 fl (80-96); MEAN PLT VOLUME 9.5 fl (7.5-11.1); PLATELET COUNT 189 K/MM3 (134-434); RBC 2.43 M/mm3 (3.60-5.2); RDW 24.4 % (11.6-15.6); WHITE BLOOD COUNT 7.9 K/mm3 (4.0-10.0)
[2020-05-25 07:29] LABS: POTASSIUM 4.6 mmol/L (3.5-5.1)
[2020-05-25 07:35] LABS: ALBUMIN 1.2 g/dl (3.4-5.0); CALCIUM 7.6 mg/dL (8.5-10.1)
[2020-05-25 07:39] LABS: CREATININE 2.6 mg/dL (0.55-1.3)
[2020-05-25 07:40] LABS: BILIRUBIN,TOTAL 0.5 mg/dL (0.2-1); TOT PROT 4.3 g/dl (6.4-8.2)
[2020-05-25 08:10] LABS: BLOOD UREA NITROGEN 149.6 mg/dL (7-18)
[2020-05-25 08:17] LABS: HEMOGLOBIN 6.7 GM/dL (10.7-15.3)
[2020-05-25] MEDS: PANTOPRAZOLE SODIUM 40 MG VIAL IVPUSH SCH ×2 (10:07→21:16)
[2020-05-25] MEDS: METOPROLOL TARTRATE 25 MG TABLET (FP) PO SCH ×2 (10:08→21:16)
[2020-05-25] MEDS: ZINC SULFATE 220 MG CAPSULE (FP) PO SCH (10:08)
[2020-05-25] MEDS: ASCORBIC ACID 500 MG TABLET (FP) PO SCH ×2 (10:09→21:16)
[2020-05-25] MEDS: CHOLECALCIFEROL (VIT D3) 1,000 UNIT (25 MCG) TABLET PO SCH (10:09)
[2020-05-25] MEDS: POLYETHYLENE GLYCOL 3350 119 GM BTL PO SCH (10:09)
[2020-05-25] MEDS ORDERED: PT OWN MED DRAWER 7, Y5N ONE (10:13)
[2020-05-25] MEDS: MULTIVIT-MINERALS ORAL LIQUID PO SCH (10:16)
[2020-05-25] MEDS ORDERED: VANCOMYCIN 1 GRAM (PRE-DOCKED) 1,000 MG/250 ML BAG IVPB ONE (17:10)
[2020-05-25 19:56] LABS: MAGNESIUM 2.3 mg/dL (1.8-2.4)
[2020-05-25 19:59] LABS: PHOSPHOROUS 6.4 mg/dL (2.5-4.9)
[2020-05-25 21:49] LABS: MCH 28.5 pg (25.7-33.7); MCHC 33.2 g/dl (32.0-36.0); MEAN CELL VOLUME 85.8 fl (80-96); MEAN PLT VOLUME 9.2 fl (7.5-11.1); PLATELET COUNT 156 K/MM3 (134-434); RDW 21.4 % (11.6-15.6)
[2020-05-26] MEDS: INSULIN SLIDING SCALE (NOVOLOG) 1 VIAL SQ SCH ×4 (02:59→17:26)
[2020-05-26] MEDS: METOCLOPRAMIDE HCL INJECTION 10 MG/2 ML VIAL IVPUSH SCH ×3 (06:11→21:15)
[2020-05-26] MEDS: NYSTATIN 100,000 UNIT/GM TOPICAL CREAM 15 GM TUBE TP SCH ×5 (06:11→17:23)
[2020-05-26] MEDS: INSULIN (LEVEMIR) 100 UNITS/ML UNITS SQ SCH ×2 (06:12→21:15)
[2020-05-26 07:00] LABS: HEMATOCRIT 22.6 % (32.4-45.2); HEMOGLOBIN 7.7 GM/dL (10.7-15.3); MCH 28.8 pg (25.7-33.7); MCHC 34.1 g/dl (32.0-36.0); MEAN CELL VOLUME 84.3 fl (80-96); PLATELET COUNT 166 K/MM3 (134-434); RBC 2.68 M/mm3 (3.60-5.2); RDW 21.4 % (11.6-15.6); WHITE BLOOD COUNT 7.1 K/mm3 (4.0-10.0)
[2020-05-26 07:18] LABS: POTASSIUM 4.8 mmol/L (3.5-5.1)
[2020-05-26 07:28] LABS: CALCIUM 7.6 mg/dL (8.5-10.1)
[2020-05-26 07:29] LABS: ALBUMIN 1.1 g/dl (3.4-5.0)
[2020-05-26 07:32] LABS: CREATININE 2.8 mg/dL (0.55-1.3)
[2020-05-26 07:34] LABS: BILIRUBIN,TOTAL 0.4 mg/dL (0.2-1); TOT PROT 4.1 g/dl (6.4-8.2)
[2020-05-26] MEDS ORDERED: PT OWN MED DRAWER 7, Y5N ONE ×2 (10:14→11:08)
[2020-05-26] MEDS: CHOLECALCIFEROL (VIT D3) 1,000 UNIT (25 MCG) TABLET PO SCH (10:25)
[2020-05-26] MEDS: ASCORBIC ACID 500 MG TABLET (FP) PO SCH ×2 (10:25→21:15)
[2020-05-26] MEDS: PANTOPRAZOLE SODIUM 40 MG VIAL IVPUSH SCH ×2 (10:25→21:15)
[2020-05-26] MEDS: ZINC SULFATE 220 MG CAPSULE (FP) PO SCH (10:25)
[2020-05-26] MEDS: METOPROLOL TARTRATE 25 MG TABLET (FP) PO SCH ×2 (10:25→21:15)
[2020-05-26] MEDS: MULTIVIT-MINERALS ORAL LIQUID PO SCH (10:26)
[2020-05-26] MEDS: POLYETHYLENE GLYCOL 3350 119 GM BTL PO SCH (10:26)
[2020-05-26] MEDS: ACETAMINOPHEN 650 MG/20.3 ML ORAL SOLUTION (CUPS) NGT PRN (10:29)
[2020-05-27] MEDS: NYSTATIN 100,000 UNIT/GM TOPICAL CREAM 15 GM TUBE TP SCH ×4 (00:28→17:03)
[2020-05-27] MEDS: INSULIN SLIDING SCALE (NOVOLOG) 1 VIAL SQ SCH ×4 (00:28→17:30)
[2020-05-27] MEDS: METOCLOPRAMIDE HCL INJECTION 10 MG/2 ML VIAL IVPUSH SCH ×3 (05:46→21:08)
[2020-05-27] MEDS: INSULIN (LEVEMIR) 100 UNITS/ML UNITS SQ SCH ×2 (06:55→21:12)
[2020-05-27 08:14] LABS: BASO % 0.7 % (0-2.0); EOS % 1.8 % (0-4.5); HEMATOCRIT 22.2 % (32.4-45.2); HEMOGLOBIN 7.4 GM/dL (10.7-15.3); LYMPH % 5.5 % (8-40); MCH 28.3 pg (25.7-33.7); MCHC 33.2 g/dl (32.0-36.0); MEAN CELL VOLUME 85.2 fl (80-96); MEAN PLT VOLUME 9.4 fl (7.5-11.1); MONO % 5.2 % (3.8-10.2); NEUT % 86.8 % (42.8-82.8); PLATELET COUNT 171 K/MM3 (134-434); RBC 2.61 M/mm3 (3.60-5.2); RDW 21.4 % (11.6-15.6); WHITE BLOOD COUNT 6.7 K/mm3 (4.0-10.0)
[2020-05-27 08:38] LABS: CALCIUM 7.5 mg/dL (8.5-10.1); MAGNESIUM 2.5 mg/dL (1.8-2.4)
[2020-05-27 08:42] LABS: BILIRUBIN,TOTAL 0.3 mg/dL (0.2-1); CREATININE 2.9 mg/dL (0.55-1.3); PHOSPHOROUS 7.7 mg/dL (2.5-4.9); TOT PROT 4.2 g/dl (6.4-8.2)
[2020-05-27] MEDS: PANTOPRAZOLE SODIUM 40 MG VIAL IVPUSH SCH ×2 (09:22→21:08)
[2020-05-27] MEDS: ZINC SULFATE 220 MG CAPSULE (FP) PO SCH (09:22)
[2020-05-27] MEDS: MULTIVIT-MINERALS ORAL LIQUID PO SCH (09:22)
[2020-05-27] MEDS: METOPROLOL TARTRATE 25 MG TABLET (FP) PO SCH ×2 (09:22→21:08)
[2020-05-27 09:23] LABS: BLOOD UREA NITROGEN 173.6 mg/dL (7-18)
[2020-05-27] MEDS: CHOLECALCIFEROL (VIT D3) 1,000 UNIT (25 MCG) TABLET PO SCH (09:23)
[2020-05-27] MEDS: POLYETHYLENE GLYCOL 3350 119 GM BTL PO SCH (09:23)
[2020-05-27] MEDS: ASCORBIC ACID 500 MG TABLET (FP) PO SCH ×2 (09:23→21:08)
[2020-05-27 10:38] LABS: ANISOCYTOSIS 2+; MACROCYTOSIS 0; PLATELET ESTIMATE NORMAL
[2020-05-28] MEDS: INSULIN SLIDING SCALE (NOVOLOG) 1 VIAL SQ SCH ×4 (03:00→17:31)
[2020-05-28] MEDS: NYSTATIN 100,000 UNIT/GM TOPICAL CREAM 15 GM TUBE TP SCH ×4 (04:04→17:31)
[2020-05-28] MEDS: METOCLOPRAMIDE HCL INJECTION 10 MG/2 ML VIAL IVPUSH SCH ×3 (06:06→21:29)
[2020-05-28] MEDS: INSULIN (LEVEMIR) 100 UNITS/ML UNITS SQ SCH ×2 (07:23→21:38)
[2020-05-28 07:46] LABS: BASO % 0.5 % (0-2.0); EOS % 1.8 % (0-4.5); HEMATOCRIT 22.7 % (32.4-45.2); HEMOGLOBIN 7.7 GM/dL (10.7-15.3); LYMPH % 2.9 % (8-40); MCH 28.7 pg (25.7-33.7); MCHC 33.8 g/dl (32.0-36.0); MEAN CELL VOLUME 84.9 fl (80-96); MEAN PLT VOLUME 9.1 fl (7.5-11.1); MONO % 4.4 % (3.8-10.2); NEUT % 90.4 % (42.8-82.8); PLATELET COUNT 220 K/MM3 (134-434); RBC 2.67 M/mm3 (3.60-5.2); RDW 21.4 % (11.6-15.6)
[2020-05-28 08:14] LABS: POTASSIUM 5.4 mmol/L (3.5-5.1)
[2020-05-28 08:29] LABS: MAGNESIUM 2.6 mg/dL (1.8-2.4)
[2020-05-28 08:35] LABS: CREATININE 3.2 mg/dL (0.55-1.3)
[2020-05-28] MEDS: CHOLECALCIFEROL (VIT D3) 1,000 UNIT (25 MCG) TABLET PO SCH (09:23)
[2020-05-28] MEDS: ASCORBIC ACID 500 MG TABLET (FP) PO SCH ×2 (09:23→21:29)
[2020-05-28] MEDS: METOPROLOL TARTRATE 25 MG TABLET (FP) PO SCH ×2 (09:23→21:29)
[2020-05-28] MEDS: ZINC SULFATE 220 MG CAPSULE (FP) PO SCH (09:23)
[2020-05-28] MEDS: PANTOPRAZOLE SODIUM 40 MG VIAL IVPUSH SCH ×2 (09:23→21:29)
[2020-05-28] MEDS: MULTIVIT-MINERALS ORAL LIQUID PO SCH (09:23)
[2020-05-28] MEDS: POLYETHYLENE GLYCOL 3350 119 GM BTL PO SCH (09:24)
[2020-05-28 09:35] LABS: BLOOD UREA NITROGEN 190.3 mg/dL (7-18)
[2020-05-28] MEDS ORDERED: SODIUM ZIRCONIUM CYCLOSILICATE (LOKELMA) 5 GM PACKET PO ONE (18:47)
[2020-05-28] MEDS: METOPROLOL TARTRATE 5 MG/5 ML VIAL IVPUSH PRN (18:59)
[2020-05-28] MEDS: HEPARIN NA (PORCINE) 5,000 UNITS/ML 1ML VIAL SQ SCH (21:29)
[2020-05-29] MEDS: INSULIN SLIDING SCALE (NOVOLOG) 1 VIAL SQ SCH ×4 (01:37→17:24)
[2020-05-29] MEDS: NYSTATIN 100,000 UNIT/GM TOPICAL CREAM 15 GM TUBE TP SCH ×4 (01:38→17:24)
[2020-05-29] MEDS: METOPROLOL TARTRATE 5 MG/5 ML VIAL IVPUSH PRN (04:42)
[2020-05-29] MEDS: HEPARIN NA (PORCINE) 5,000 UNITS/ML 1ML VIAL SQ SCH ×3 (06:37→22:30)
[2020-05-29] MEDS: METOCLOPRAMIDE HCL INJECTION 10 MG/2 ML VIAL IVPUSH SCH ×3 (06:38→22:31)
[2020-05-29] MEDS: INSULIN (LEVEMIR) 100 UNITS/ML UNITS SQ SCH ×2 (06:42→22:31)
[2020-05-29] MEDS ORDERED: PT OWN MED DRAWER 7, Y5N ONE ×2 (10:38→17:26)
[2020-05-29] MEDS: CHOLECALCIFEROL (VIT D3) 1,000 UNIT (25 MCG) TABLET PO SCH (10:46)
[2020-05-29] MEDS: ZINC SULFATE 220 MG CAPSULE (FP) PO SCH (10:46)
[2020-05-29] MEDS: ASCORBIC ACID 500 MG TABLET (FP) PO SCH ×2 (10:46→22:31)
[2020-05-29] MEDS: METOPROLOL TARTRATE 25 MG TABLET (FP) PO SCH ×2 (10:46→22:31)
[2020-05-29] MEDS: PANTOPRAZOLE SODIUM 40 MG VIAL IVPUSH SCH ×2 (10:47→22:31)
[2020-05-29] MEDS: MULTIVIT-MINERALS ORAL LIQUID PO SCH (10:47)
[2020-05-29] MEDS: POLYETHYLENE GLYCOL 3350 119 GM BTL PO SCH (10:47)
[2020-05-29] MEDS: ACETAMINOPHEN 650 MG/20.3 ML ORAL SOLUTION (CUPS) NGT PRN (10:54)
[2020-05-29] MEDS ORDERED: DEXTROSE 5%-LACTATED RINGERS 1,000 ML IV SCH (12:15)
[2020-05-29] MEDS ORDERED: SODIUM ZIRCONIUM CYCLOSILICATE (LOKELMA) 5 GM PACKET PO ONE (15:16)
[2020-05-30] MEDS: INSULIN SLIDING SCALE (NOVOLOG) 1 VIAL SQ SCH ×3 (01:00→12:54)
[2020-05-30] MEDS: NYSTATIN 100,000 UNIT/GM TOPICAL CREAM 15 GM TUBE TP SCH ×3 (02:11→12:54)
[2020-05-30] MEDS: METOCLOPRAMIDE HCL INJECTION 10 MG/2 ML VIAL IVPUSH SCH (05:09)
[2020-05-30] MEDS: HEPARIN NA (PORCINE) 5,000 UNITS/ML 1ML VIAL SQ SCH (05:09)
[2020-05-30] MEDS: INSULIN (LEVEMIR) 100 UNITS/ML UNITS SQ SCH (06:46)
[2020-05-30 08:22] VITALS: TEMP 97.3
[2020-05-30] MEDS ORDERED: MORPHINE SULFATE/0.9% NACL/PF 100 MG/100 ML BAG IVPB SCH ×2 (09:30)
[2020-05-30] MEDS ORDERED: MORPHINE SULFATE 2 MG/ML VIAL IVPUSH ONE (09:30)
[2020-05-30] MEDS ORDERED: PT OWN MED DRAWER 7, Y5N ONE (09:43)
[2020-05-30] MEDS: MULTIVIT-MINERALS ORAL LIQUID PO SCH (09:53)
[2020-05-30] MEDS: METOPROLOL TARTRATE 25 MG TABLET (FP) PO SCH (09:53)
[2020-05-30] MEDS: ZINC SULFATE 220 MG CAPSULE (FP) PO SCH (09:54)
[2020-05-30] MEDS: CHOLECALCIFEROL (VIT D3) 1,000 UNIT (25 MCG) TABLET PO SCH (09:54)
[2020-05-30] MEDS: ASCORBIC ACID 500 MG TABLET (FP) PO SCH (09:54)
[2020-05-30] MEDS: PANTOPRAZOLE SODIUM 40 MG VIAL IVPUSH SCH (09:54)
[2020-05-30] MEDS: POLYETHYLENE GLYCOL 3350 119 GM BTL PO SCH (09:54)
[2020-05-30 12:32] VITALS: BP 123/68; PULSE 119
== END 2020-05-30 13:11 | disposition expired | DRG 870 ==
LOC: JER 21:37 → JERBED 05-02 01:05 → J4W 05-02 18:03 → JICU-6 05-03 10:14 → JICU 05-22 20:12
PROVIDERS: ADMIT Hospitalist; ATTEND Internal Medicine
PROC: XW033E5 Introduction of Remdesivir Anti-infective into Peripheral Vein, Percutaneous Approach, New Technology Group 5 (ICD-10-PCS; 2020-05-02)
PROC: 05H633Z Insertion of Infusion Device into Left Subclavian Vein, Percutaneous Approach (ICD-10-PCS; 2020-05-02)
PROC: 05H633Z Insertion of Infusion Device into Left Subclavian Vein, Percutaneous Approach (ICD-10-PCS; principal; 2020-05-03)
PROC: 5A1955Z Respiratory Ventilation, Greater than 96 Consecutive Hours (ICD-10-PCS; 2020-05-03)
PROC: 4A133B1 Monitoring of Arterial Pressure, Peripheral, Percutaneous Approach (ICD-10-PCS; 2020-05-03)
PROC: 4A133J1 Monitoring of Arterial Pulse, Peripheral, Percutaneous Approach (ICD-10-PCS; 2020-05-03)
PROC: 0BH17EZ Insertion of Endotracheal Airway into Trachea, Via Natural or Artificial Opening (ICD-10-PCS; 2020-05-03)
PROC: XW13325 Transfusion of Convalescent Plasma (Nonautologous) into Peripheral Vein, Percutaneous Approach, New Technology Group 5 (ICD-10-PCS; 2020-05-03)
PROC: 5A12012 Performance of Cardiac Output, Single, Manual (ICD-10-PCS; 2020-05-03)
PROC: 0DH673Z Insertion of Infusion Device into Stomach, Via Natural or Artificial Opening (ICD-10-PCS; 2020-05-04)
PROC: 05H533Z Insertion of Infusion Device into Right Subclavian Vein, Percutaneous Approach (ICD-10-PCS; 2020-05-06)
PROC: 30233N1 Transfusion of Nonautologous Red Blood Cells into Peripheral Vein, Percutaneous Approach (ICD-10-PCS; 2020-05-16)
DX: A41.89 Other specified sepsis (principal); U07.1 COVID-19; J12.82 Pneumonia due to coronavirus disease 2019; K72.01 Acute and subacute hepatic failure with coma; J80 Acute respiratory distress syndrome; E87.0 Hyperosmolality and hypernatremia; N39.0 Urinary tract infection, site not specified; N17.9 Acute kidney failure, unspecified; K92.1 Melena; G93.1 Anoxic brain damage, not elsewhere classified; J90 Pleural effusion, not elsewhere classified; R65.20 Severe sepsis without septic shock; I10 Essential (primary) hypertension; E78.5 Hyperlipidemia, unspecified; K21.9 Gastro-esophageal reflux disease without esophagitis; K22.70 Barrett's esophagus without dysplasia; E03.9 Hypothyroidism, unspecified; I44.4 Left anterior fascicular block; B96.20 Unspecified Escherichia coli [E. coli] as the cause of diseases classified elsewhere; E11.9 Type 2 diabetes mellitus without complications; M54.5 Low back pain; R00.0 Tachycardia, unspecified; R50.9 Fever, unspecified; N13.9 Obstructive and reflux uropathy, unspecified; R74.01 Elevation of levels of liver transaminase levels; B95.62 Methicillin resistant Staphylococcus aureus infection as the cause of diseases classified elsewhere; I46.9 Cardiac arrest, cause unspecified; E66.9 Obesity, unspecified; Z68.25 Body mass index [BMI] 25.0-25.9, adult; E11.43 Type 2 diabetes mellitus with diabetic autonomic (poly)neuropathy; K31.84 Gastroparesis; D50.0 Iron deficiency anemia secondary to blood loss (chronic); R94.5 Abnormal results of liver function studies; Z86.010 Personal history of colon polyps; E87.70 Fluid overload, unspecified; Z71.89 Other specified counseling; Z66 Do not resuscitate
CPT/HCPCS: 36415; 36430; 36511; 36600; 70450-TC; 71045-TC-FY; 71250-TC; 76700-TC; 76856-TC; 80048; 80053; 81003; 82248; 82272; 82550; 82553; 82607; 82728; 82746; 82803; 82962; 83036; 83605; 83615; 83735; 84100; 84443; 84484; 85025; 85027; 85045; 85379; 85610; 85730; 86140; 86780; 86850; 86900; 86901; 86922; 87040; 87070; 87076; 87077; 87086; 87186; 87205; 87324; 87449; 87804; 93005; 93010; 94002; 94660; 99285-25; C9399; C9803; G0480; J0131; J1100; J1644; P9017; P9038; P9058; U0003